=== PATIENT | female | born 1940 | race Caucasian/White ===

== ENCOUNTER 2020-07-29 10:10 | Outpatient (CLI) | payer OTHER, SELFPAY ==
--- NOTE | ~2020-07-29 | MM_ITS ---
EXAMINATION: MM screening [facility] BI w kirill HISTORY: Screening mammogram TECHNIQUE: Craniocaudal and mediolateral oblique 3-D tomosynthesis images were obtained and synthetic 2-D images were generated. CAD analysis was submitted and interpreted. COMPARISON: 12/13/2018, 06/21/2017, 06/17/2016 BREAST PARENCHYMAL COMPOSITION: There are scattered areas of fibroglandular density. FINDINGS: There is a stable left breast mass with adjacent biopsy change. There is no evidence of dbera picious mass, calcification, or architectural distortion to suggest malignancy in either breast. Ther e has been no suspicious interval change. IMPRESSION: 1. No mammographic evidence of malignancy. 2. Recommend routine screening mammography in one year. BI-RADS Category 2: Benign finding(s). Reviewed, dictated and finalized at location A. RVENTIONAL NURSE
== END 2020-07-29 10:11 | disposition home or self-care (01) ==
LOC: ANHIMG 10:14
PROVIDERS: PCP Family Medicine Adolescent Medicine; Visit Provider Physician Assistant
DX: Z12.31 Encounter for screening mammogram for malignant neoplasm of breast (principal)
CPT/HCPCS: 77063; 77067

== ENCOUNTER 2021-06-19 12:28 | Outpatient (CLI) | payer OTHER, SELFPAY ==
--- NOTE | ~2021-06-19 | US_ITS ---
EXAMINATION: US soft tissue head and neck DATE: 06/19/2021 13:05 INDICATION: Localized right neck swelling. TECHNIQUE: Multiple grayscale and Doppler ultrasound images of the neck were obtained. COMPARISON: None FINDINGS: In the posterior right neck, there is a 1.4 x 1.4 x 1.5 cm solid, hypoechoic, peripherally calcified mass. IMPRESSION: 1. 1.5 cm mass in posterior right neck, which may be benign or malignant. Neck CT with contrast is re commended. Reviewed, dictated and finalized at location A. IMPRESSION: 1. 1.5 cm mass in posterior right neck, which may be benign or malignant. Neck CT with contrast is recommended.
== END 2021-06-19 12:29 | disposition home or self-care (01) ==
PROVIDERS: PCP Family Medicine Adolescent Medicine; Visit Provider Otolaryngology
DX: R22.1 Localized swelling, mass and lump, neck (principal)
CPT/HCPCS: 76536

== ENCOUNTER → 2021-07-07 03:39 | Outpatient (CLI) | payer OTHER, SELFPAY ==
[2021-07-07 19:59] LABS: SARS-CoV-2 RNA PCR Negative
== END ==
PROVIDERS: PCP Family Medicine Adolescent Medicine; Visit Provider Otolaryngology
DX: Z01.812 Encounter for preprocedural laboratory examination (principal); Z20.822 Contact with and (suspected) exposure to COVID-19
CPT/HCPCS: C9803; U0003; U0005

== ENCOUNTER 2021-07-08 13:38 | Outpatient (CLI) | payer OTHER, SELFPAY ==
--- NOTE | 2021-07-08 13:50 | ECG_ITS ---
Measurements Intervals [place] Rate: 73 P: 18 MA: 166 QRS: -10 QRSD: 83 T: 2 QT: 398 QTc: 440 Interpretive Statements SINUS RHYTHM LOW QRS VOLTAGE IN PRECORDIAL LEADS BORDERLINE R WAVE PROGRESSION, ANTERIOR LEADS INFERIOR INFARCT, AGE INDETERMINATE ABNORMAL ECG Electronically Signed On 07-08-2021 15:44:48 CDT by James Trimble D.O.
[2021-07-08 15:10] LABS: Anion Gap 10 mmol/L (8-16); Blood Urea Nitrogen 17 mg/dL (7-17); Calcium 9.6 mg/dL (8.4-10.2); Carbon Dioxide 28 mmol/L (22-30); Chloride 102 mmol/L (98-107); Estimated Glomerular Filt Rate 53; Glucose 94 mg/dL (65-110); Potassium 4.1 mmol/L (3.4-5.0); Sodium 140 mmol/L (137-145)
== END 2021-07-08 13:39 | disposition home or self-care (01) ==
LOC: ANHSURGERY 13:42
PROVIDERS: Anesthesiology; PCP Family Medicine Adolescent Medicine; Visit Provider Otolaryngology
DX: I10 Essential (primary) hypertension (principal); Z01.818 Encounter for other preprocedural examination; R94.31 Abnormal electrocardiogram [ECG] [EKG]
CPT/HCPCS: 36415; 80048; 93005

== ENCOUNTER 2021-07-10 00:31 | Day surgery (SDC) | payer OTHER, SELFPAY ==
--- NOTE | 2021-07-07 06:17 | PM.HPGS ---
History of Present Illness History of Present Illness Consent: Risks, benefits, and alternatives have been discussed and questions answered. Patient agrees to proceed with procedure. Chief complaint: right posterior cervical neck mass Narrative: Jacquie Meraz is a 81 year old female with a right posterior cervical firm mass Review of Systems Review of Systems: All systems reviewed & are unremarkable except as noted in HPI and below PMFSH Family History Family History Father Lung cancer Hypertension Heart disease Mother Carcinoma of colon Sibling Asthma Hypertension Depression Other Alcoholism Diabetes mellitus Hypertension Depression Grandparent Carcinoma of colon Grandparent Breast cancer Stomach cancer Social History Social History Alcohol intake: never Substance use: never Substance use type: does not use Meds Home Medications and Allergies Home Medications Medication Instructions Recorded Confirmed Type aspirin 81 mg tablet,delayed 81 mg PO DAILY 03/03/21 03/03/21 History release glucosamine HCl 1,500 mg tablet 1,500 mg PO DAILY 03/03/21 03/03/21 History levothyroxine 150 mcg capsule 150 mcg PO DAILY 03/03/21 03/03/21 History lisinopril 20 1 tablet PO DAILY 03/03/21 03/03/21 History mg-hydrochlorothiazide 12.5 mg tablet simvastatin 40 mg tablet 40 mg PO DAILY 03/03/21 03/03/21 History fluticasone propionate 50 See Rx Instructions .ROUTE 05/14/21 Rx mcg/actuation nasal .COMPLEX #16 ml spray,suspension Allergies Allergy/AdvReac Type Severity Reaction Status Date / Time erythromycin base Allergy Severe RASH, Verified 06/25/21 08:31 SWELLING Penicillins Allergy Severe RASH, Verified 06/25/21 08:31 SWELLING, BLISTERS Sulfa (Sulfonamide Allergy Mild SORE Verified 06/25/21 08:31 Antibiotics) MUSCLES FRESH BLACK PEPPER Allergy Mild ITCHING Uncoded 06/05/21 08:54 AND TINGLING AROUND MOUTH Exam Narrative: chest clear heart without murmurs abdomen soft extremities negative right posterior for mass approximately 2.5 cm Assessment and Plan Additional Plan plan excision neck mass right posterior cervical
[2021-07-07 14:36] VITALS: BMI 34.4
--- NOTE | 2021-07-09 10:49 | WPDANESEPPF ---
Anes - Initial Pre Proc Eval Procedure: Operation Date: 07/10/21 10:15 Proposed Procedures p Excision Right Posterior Cervical Neck Mass - Ross Sanders MD Date/Time: 07/09/21 10:49 Surgeon: Ross Sanders MD Pre Op Diagnosis: right posterior cervical neck mass Patient Data Age: 81 Gender: F Height: 1.63 m Weight: 90.9 kg Allergies Allergy/AdvReac Type Severity Reaction Status Date / Time erythromycin base Allergy Severe RASH, Verified 07/10/21 08:23 SWELLING Penicillins Allergy Severe RASH, Verified 07/10/21 08:23 SWELLING, BLISTERS Sulfa (Sulfonamide Allergy Mild SORE Verified 07/10/21 08:23 Antibiotics) MUSCLES FRESH BLACK PEPPER Allergy Mild ITCHING Uncoded 07/10/21 08:23 AND TINGLING AROUND MOUTH Home Medications Medication Instructions Recorded Confirmed Type aspirin 81 mg tablet,delayed 81 mg PO DAILY 03/03/21 07/10/21 History release glucosamine HCl 1,500 mg tablet 1,500 mg PO DAILY 03/03/21 07/10/21 History levothyroxine 150 mcg capsule 150 mcg PO DAILY 03/03/21 07/10/21 History lisinopril 20 0.5 tablet PO DAILY 03/03/21 07/10/21 History mg-hydrochlorothiazide 12.5 mg tablet simvastatin 40 mg tablet 40 mg PO DAILY 03/03/21 07/10/21 History Hair,Nails and Skin Vitamin 1 tab-cap PO DAILY 07/07/21 07/10/21 History ipratropium bromide 1 mcg INTRANASAL DAILY 07/07/21 07/10/21 History omeprazole 20 mg PO DAILY 07/07/21 07/10/21 History meclizine 25 mg PO TID 07/10/21 07/10/21 History Patient hx anesthesia problems: none Family hx anesthesia problems: none Results Review: All pre-operative results and documents have been reviewed as part of the pre-operative evaluation. [facility] Past Medical History Medical History (Updated 07/09/21 @ 10:50 by Javier Quintana DO) Crohn disease GERD (gastroesophageal reflux disease) Hepatitis Hypertension Hypothyroidism Surgical History Surgical History (Updated 07/09/21 @ 10:50 by Javier Quintana DO) History of appendectomy History of tubal ligation Family History Family History Father Lung cancer Hypertension Heart disease Mother Carcinoma of colon Sibling Asthma Hypertension Depression Other Alcoholism Diabetes mellitus Hypertension Depression Grandparent Carcinoma of colon Grandparent Breast cancer Stomach cancer Social History Social History Smoking status: Light tobacco smoker Alcohol intake: never Substance use: never Substance use type: does not use Living arrangements: alone Spiritual care concerns: No Anes - Eval Final PreProcedure Day of Procedure 07/09/21 10:49 Patient weight: obese Heart: regular rate and rhythm Lungs: clear to auscultation and normal air movement Airway: Mallampati scale class II Neurological: alert and oriented Last oral intake: >/= 8 hours ASA classification: III Emergent: no Anesthetic plan: proceed Anesthesia type and monitoring: general ETT and standard monitoring Results Review: All pre-operative results and documents have been reviewed as part of the pre-operative evaluation. Informed Consent: The patient's anesthetic plan and its attendant risks and benefits were discussed with the patient/family/POA. Questions were solicited and answers provided to the satisfaction of the patient/family/POA.
[2021-07-10] VITALS (9 sets, daily range): BP systolic 104–143; BP diastolic 49–67; PULSE 65–83; RESP 12–20; TEMP 36.4–36.6; O2SAT 97–100
--- NOTE | 2021-07-10 06:07 | WPDHPUPDATE1 ---
History and Physical Update Update Date/Time: 07/10/21 06:07 History and Physical has been reviewed, including an updated exam of the patient. There are NO changes in the patient's condition. Risks, benefits, and alternatives have been discussed and questions answered. Patient agrees to proceed with procedure.
[2021-07-10] MEDS: LACTATED RINGERS 1,000 ML 30 ML IV CONT ×2 (08:51→11:05)
[2021-07-10] MEDS: LIDO 1%/EPINEPHRINE 1:100,000 50 ML VIAL INFILTRATE (10:13)
--- NOTE | 2021-07-10 10:25 | P.OP_ITS ---
Procedure Note - Detailed Date of Procedure 07/10/21 Pre-op Diagnosis right posterior cervical neck mass Post-op Diagnosis same Procedure Performed Excision posterior cervical mass Surgeon Ross Sanders MD Description of Procedure Patient was prepped and draped fashion anesthesia the area was injected xylocaine with adrenaline incision was made palpation revealed very hard consistent with bone marker of the 11th nerve was identified area more than likely represented fat on top bone to fat was removed hemostasis was obtained w ith bipolar electrocautery and closed in layers of chromic and glue
== END 2021-07-10 12:50 | disposition home or self-care (01) ==
PROVIDERS: PCP Family Medicine Adolescent Medicine; Visit Provider Otolaryngology
PROC: (CPT 11423; principal; 2021-07-10 10:15)
DX: L90.5 Scar conditions and fibrosis of skin (principal); I10 Essential (primary) hypertension; E03.9 Hypothyroidism, unspecified; K21.9 Gastro-esophageal reflux disease without esophagitis; K50.90 Crohn's disease, unspecified, without complications; F17.200 Nicotine dependence, unspecified, uncomplicated
CPT/HCPCS: 11423; 36415; 80048; 88304; 93005; A9270; C9803; J0330; J1100; J2405; J2704; J3010; J7120; U0003; U0005

== ENCOUNTER 2023-02-17 02:18 | Inpatient (IN) | payer OTHER, SELFPAY ==
[2023-02-17] VITALS (8 sets, daily range): BP systolic 121–143; BP diastolic 45–56; PULSE 58–80; RESP 13–20; TEMP 35.9–36.5; O2SAT 97–100; BMI 29.7
--- NOTE | ~2023-02-17 | CT_ITS ---
CT of the Abdomen and Pelvis: Indication: Abdominal pain Technique: 2.5 mm axial scans were obtained through the abdomen and pelvis following intravenous adm inistration of 100 cc of Omnipaque 350. Dose reduction technique was used on this scan by utilizing a utomated exposure control and iterative reconstruction technique. The dose-length product (DLP) was 7 13.89 mGy-cm. COMPARISON: 08/28/2012 Findings: Scans through the lung bases demonstrates stable 5 mm left lower lobe pulmonary nodule. The liver, spleen, pancreas, gallbladder, adrenals and kidneys are within normal limits. There are at herosclerotic calcifications of the aorta. No lymphadenopathy. Left-sided IVC noted with hemiazygos continuation. Questionable minimal wall thickening and adjacent stranding of the proximal duodenum/gastric antrum. No bowel obstruction. No abscess or free air. Images through the pelvis were performed. Urinary bladder unremarkable. There is an 8.8 x 7.6 cm pelv ic mass with large amount of macroscopic fat, as well as additional smaller soft tissue components an d focal consolidation, most compatible with early/mature teratoma. This probably arises from the righ t ovarian region. No other adnexal mass seen. No ascites. Impression: Questionable mild wall thickening at the proximal duodenum with minimal surrounding inflammatory benitez ge. Correlate for duodenitis/peptic ulcer disease, or possibly pancreatitis. 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 Reviewed, dictated and finalized at [facility]. Impression: Questionable mild wall thickening at the proximal duodenum with minimal surroun ding inflammatory change. Correlate for duodenitis/peptic ulcer disease, or pos sibly pancreatitis. 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
--- NOTE | ~2023-02-17 | US_ITS ---
EXAMINATION: US soft tissue LE RT DATE: 02/18/2023 11:10 INDICATION: Right lower limb bump. TECHNIQUE: Multiple grayscale and Doppler ultrasound images of the right lower limb were obtained. COMPARISON: None FINDINGS: In the patient's area of concern in right lower limb near the lateral right ankle, there is ill-defined hyperechoic subcutaneous fat, consistent with inflammation. IMPRESSION: 1. Ill-defined hyperechoic subcutaneous fat in right lower limb near the lateral right ankle, consist ent with inflammation. Reviewed, dictated and finalized at location A. IMPRESSION: 1. Ill-defined hyperechoic subcutaneous fat in right lower limb near the latera l right ankle, consistent with inflammation.
--- NOTE | ~2023-02-17 | XR_ITS ---
Portable chest x-ray Comparison: None Clinical History: Chest pain Findings: Lungs are clear, without focal consolidation or pleural effusion. Cardiomediastinal silho uette is unremarkable. Bones and soft tissues are unremarkable. Impression: Clear lungs. Reviewed, dictated and finalized at location [facility]. Impression: Clear lungs.
--- NOTE | ~2023-02-17 | US_ITS ---
Limited Abdominal Sonogram: Real-time sonographic imaging of the right upper quadrant was performed. Clinical History: Right upper quadrant pain Findings: The liver appears normal with no evidence of mass lesion or bile duct dilatation. Main por roxanna vein demonstrates normal direction of flow. The gallbladder is well distended, and contains a min imal amount of sludge. No gallbladder wall thickening. The common bile duct measures 4 mm. The visua lized pancreas, aorta, and IVC are unremarkable. Impression: Minimal gallbladder sludge. Reviewed, dictated and finalized at location [facility]. Impression: Minimal gallbladder sludge.
--- NOTE | 2023-02-17 02:22 | ECG_ITS ---
Measurements Intervals [place] Rate: 74 P: 42 SC: 172 QRS: 1 QRSD: 87 T: 18 QT: 392 QTc: 437 Interpretive Statements SINUS RHYTHM LOW QRS VOLTAGE IN PRECORDIAL LEADS [QRS DEFLECTION < 1.0 mV IN CHEST LEADS] ABNORMAL ECG COMPARED TO ECG 07/08/2021 14:03:45 NO SIGNIFICANT CHANGES Electronically Signed On 02-17-2023 9:37:53 CDT by Charli Roberson M.D.
[2023-02-17 02:32] LABS: Basophils Percent Auto 0.6 % (0.2-1.2); Eosinophils Absolute Auto 0.3 K/mm3 (0-0.3); Eosinophils Percent Auto 4.5 % (0-4.4); Hematocrit 33.5 % (37.0-47.0); Immature Granulocyte Absolute 0.01 K/mm3 (0.00-0.031); Immature Granulocyte Percent A 0.2 % (0-0.5); Lymphocytes Absolute Auto 2.49 K/mm3 (0.9-3.2); Lymphocytes Percent Auto 38.3 % (18.3-44.2); Mean Corpuscular HGB Conc 32.8 g/dl (32-36); Mean Corpuscular Hemoglobin 31.3 pg (26-34); Mean Corpuscular Volume 95.2 fl (80-100); Mean Platelet Volume 9.7 fl (7.4-10.4); Monocytes Absolute Auto 0.5 K/mm3 (0.1-0.6); Monocytes Percent Auto 7.1 % (2.6-8.5); Neutrophils Absolute Auto 3.2 K/mm3 (1.3-6.7); Neutrophils Percent Auto 49.3 % (45.5-73.1); Platelet Count Result 233 k/mm3 (150-375); Red Blood Count 3.52 M/mm3 (4.2-5.4); White Blood Count 6.5 K/mm3 (4.5-10.0)
--- NOTE | 2023-02-17 02:39 | ED.GENADULT ---
HPI - General Adult General Chief complaint: Chest Pain Stated complaint: CP Time Seen by Provider: 02/17/23 02:39 History of Present Illness HPI narrative: Triage note says chest pain. Actually abdominal pain. Patient states that at 2:00 a.m. this morning while she is sleeping she started have a stabbing/spasm pain in her right upper quadrant, is nonradiating 10 out 10 intensity. . She is no longer feeling pain. She has never had this before there are no exacerbating alleviating symptoms. The pain happened she felt clammy and nauseous. She denies fever chills chest pain difficulty breathing and vomiting. Her last bowel movement was 3 days ago. Patient has noticed that she is losing weight although she says that she is trying to eat more healthy. Denies other complaints. Related Data Home Medications Medication Instructions Recorded Confirmed aspirin 81 mg tablet,delayed 81 mg PO DAILY 03/03/21 01/21/23 release (Adult Low Dose Aspirin) glucosamine HCl 1,500 mg tablet 1,500 mg PO DAILY 03/03/21 01/21/23 Hair,Nails and Skin Vitamin 1 tab-cap PO DAILY 07/07/21 01/21/23 omeprazole 20 mg tablet,delayed 20 mg PO DAILY 07/07/21 01/21/23 release biotin 1 mg capsule 1 mg PO DAILY 06/24/22 01/21/23 Allergies Allergy/AdvReac Type Severity Reaction Status Date / Time erythromycin base Allergy Severe RASH, Verified 01/21/23 08:46 SWELLING Penicillins Allergy Severe RASH, Verified 01/21/23 08:46 SWELLING, BLISTERS Sulfa (Sulfonamide Allergy Mild SORE Verified 01/21/23 08:46 Antibiotics) MUSCLES FRESH BLACK PEPPER Allergy Mild ITCHING Uncoded 01/21/23 08:46 AND TINGLING AROUND MOUTH PMFSH Past Medical History Medical History GERD (gastroesophageal reflux disease) Hepatitis 1961 Hypothyroidism Sialadenitis Surgical History Surgical History History of appendectomy History of hysterectomy with oophorectomy History of tubal ligation 1976 Family History Family History Father Lung cancer Hypertension Heart disease Malignant neoplasm of prostate Mother Carcinoma of colon Sibling Asthma Hypertension Heart disease Other Alcoholism Diabetes mellitus Hypertension Depression Grandparent Carcinoma of colon Grandparent Breast cancer Stomach cancer Son Alcoholism Depression Diabetes mellitus Hypertension Social History Social History Smoking status: Former smoker Tobacco type: cigarettes Second hand tobacco smoke exposure: No Smoking end date: 09/13/75 Alcohol intake: never Substance use: never Substance use type: does not use Living arrangements: with family Occupation/Education: retired Gender identity (if verbalized by the patient): Female Sexual Orientation (if Verbalized by the Patient): Straight or Heterosexual Spiritual care concerns: No Agree to blood products: Yes Exam Narrative: APPEARANCE: No apparent distress. Head: atraumatic. EYES: EOMI, NOSE: Atraumatic NECK: Trachea midline RESPIRATORY: No increased rate of breathing clear to auscultation CARDIOVASCULAR: RRR, No peripheral edema ABDOMINAL: tenderness in the right upper quadrant without distention guarding or rebound. Bowel sounds present. MUSCULOSKELETAl: No obvious deformities NEURO: Alert. Moving 4/4 extremities SKIN:: Warm, dry. Normal color PSYCHIATRIC: Normal affect Course Vital Signs Vital signs: Vital Signs Pulse Rate 80 02/17/23 02:19 Respiratory Rate 20 02/17/23 02:19 Pulse Oximetry 99 02/17/23 02:19 Oxygen Delivery Room Air 02/17/23 02:19 Pulse Rate 66 02/17/23 04:53 Respiratory Rate 13 02/17/23 04:53 Blood Pressure 128/56 L 02/17/23 04:53 Pulse Oximetry 100
[2023-02-17 02:44] LABS: Alanine Aminotransferase 32 U/L (6-35); Albumin Level 3.7 g/dL (3.5-5.1); Alkaline Phosphatase 72 U/L (38-126); Anion Gap 4 mmol/L (8-16); Aspartate Amino Transferase 64 U/L (14-36); Bilirubin,Total 0.2 mg/dL (0.2-1.3); Blood Urea Nitrogen 20 mg/dL (7-17); Carbon Dioxide 30 mmol/L (22-30); Chloride 106 mmol/L (98-107); Estimated CRCL calculation 38 ml/min; Estimated Glomerular Filt Rate 53; Glucose 99 mg/dL (65-110); Lipase 1261 U/L (23-300); Partial Thromboplastin Time 28.1 SECONDS (22.3-36.8); Potassium 3.6 mmol/L (3.4-5.0); Prothrombin Time 13.2 Seconds (11.1-14.7); Sodium 140 mmol/L (137-145)
--- NOTE | 2023-02-17 03:05 | PC.NURSE ---
Nurse report given to Debbie SORENSEN
[2023-02-17 03:33] LABS: Troponin I < 0.012 ng/mL (0.000-0.034)
--- NOTE | 2023-02-17 05:21 | PM.IMHP ---
H&P: HPI History of Present Illness Date/Time: 02/17/23 05:21 Chief Complaint: Abdominal pain Narrative: This is an 82-year-old female with past medical history significant for degenerative joint disease, COPD, hypertension, dyslipidemia. Patient presents to the emergency room due to right upper quadrant pain walker up from her sleep denies any nausea, vomiting, diarrhea has had constipation, weight loss. Denies any fevers, rigors, chills. Preliminary workup was significant for CT of abdomen and pelvis was reported as: CT of the Abdomen and Pelvis: Indication: Abdominal pain Technique:? 2.5 mm axial scans were obtained through the abdomen and pelvis following intravenous administration of 100 cc of Omnipaque 350. Dose reduction technique was used on this scan by utilizing automated exposure control and iterative reconstruction technique. The dose-length product (DLP) was 713.89 mGy-cm. COMPARISON: 08/28/2012 Findings:? Scans through the lung bases demonstrates stable 5 mm left lower lobe pulmonary nodule. The liver, spleen, pancreas, gallbladder, adrenals and kidneys are within normal limits. There are atherosclerotic calcifications of the aorta.? No lymphadenopathy. Left-sided IVC noted with hemiazygos continuation. Questionable minimal wall thickening and adjacent stranding of the proximal duodenum/gastric antrum. No bowel obstruction. No abscess or free air. Images through the pelvis were performed. Urinary bladder unremarkable. There is an 8.8 x 7.6 cm pelvic mass with large amount of macroscopic fat, as well as additional smaller soft tissue components and focal consolidation, most compatible with early/mature teratoma. 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 No other adnexal mass seen. No ascites. Impression: Questionable mild wall thickening at the proximal duodenum with minimal surrounding inflammatory change. Correlate for duodenitis/peptic ulcer disease, or possibly pancreatitis. 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 Portable chest x-ray Comparison: None Clinical History: Chest pain Findings:? Lungs are clear, without focal consolidation or pleural effusion.? Cardiomediastinal silhouette is unremarkable. Bones and soft tissues are unremarkable. ? Impression: ? Clear lungs. Review of Systems Review of Systems: Right upper quadrant pain, weight loss. Constitutional: Constitutional: Denies chills, Denies fatigue, Denies fever(s), Denies malaise, Denies weakness and Reports weight loss Eyes: Eyes: Denies change in vision ENT: Denies dysphagia and Denies odynophagia Cardiovascular: Cardiovascular: Denies chest pain, Denies radiating jaw, neck or arm pain and Denies palpitations Respiratory: Respiratory: Denies chest congestion, Denies cough, Denies excessive phlegm production and Denies dyspnea Gastrointestinal: Gastrointestinal: Reports abdominal pain, Denies dyspepsia, Denies heartburn, Denies diarrhea, Denies nausea and Denies vomiting Genitourinary: Genitourinary: Denies dysuria Musculoskeletal: Musculoskeletal: Denies back pain, Denies myalgias and Denies arthralgias Integumentary/Breasts: Skin/Breast: Denies rash Neurologic: Denies focal weakness and Denies Sensory deficit (Neuro) [facility] Past Medical History Medical History (Updated 02/17/23 @ 15:46 by Julio Guerra MD) GERD (gastroesophageal reflux disease) Hepatitis 1961 Hypothyroidism Pelvic mass in female Sialadenitis Sludge in gallbladder Surgical History Surgical History History of appendectomy History of hysterectomy with oophorectomy History of tubal ligation 1976 Family History Family History Father Lung cancer Hypertension Heart disease Malignant neoplasm of prostate Mother Carcinoma of colon Sibling Asthma Hypertension Heart disease Ot
[2023-02-17 06:03] LABS: Troponin I < 0.012 ng/mL (0.000-0.034)
--- NOTE | 2023-02-17 06:13 | ADMGEN ---
At 0610 this patient, Jacquie Meraz, was admitted to 3 [facility] Surg Room 307-01. Patient/family oriented to hospital policies and general routines including ID bracelet, bed and alarms, visiting hours, pain management, procedures, bathroom and other care routines, personal items, smoking policy, room service/diet, and visiting hours. Information on how to activate the Rapid Response Team has been discussed. Patient/Family are encouraged to report perceived risks to care and to ask questions if they do not understand what they are told or what they should do.
[2023-02-17] MEDS: LACTATED RINGERS 1,000 ML 125 ML IV CONT ×2 (07:52→16:48)
[2023-02-17 08:40] LABS: Troponin I < 0.012 ng/mL (0.000-0.034)
[2023-02-17 10:15] LABS: Lipase 1430 U/L (23-300)
[2023-02-17] MEDS: IPRATROPIUM NASAL SPRAY 0.06% 15 ML BOTTLE 4 SPRAY NASAL ×2 (10:32→20:21)
[2023-02-17] MEDS: lisinopriL 20 MG TABLET PO (10:32)
[2023-02-17] MEDS: oxyBUTYnin CHLORIDE XL 5 MG TAB.ER.24 PO (10:32)
[2023-02-17] MEDS: hydroCHLOROthiazide 12.5 MG CAPSULE PO (10:33)
[2023-02-17] MEDS: SIMVASTATIN 20 MG TABLET 40 MG PO (10:33)
--- NOTE | 2023-02-17 13:04 | WPDPN ---
Progress Note: A&P Assessment and Plan (1) Acute pancreatitis: Code(s): K85.90 - Acute pancreatitis without necrosis or infection, unspecified Status: Acute Assessment and Plan: Place in observation Supportive care GI consult This is an 82-year-old female with past medical history significant for degenerative joint disease, COPD, hypertension, dyslipidemia.? Patient presents to the emergency room due to right upper quadrant pain walker up from her sleep denies any nausea, vomiting, diarrhea has had constipation, weight loss.? Denies any fevers, rigors, chills.? Preliminary workup was significant for CT of abdomen and pelvis preliminary report pancreatic cystic adenoma 02/17/2023 interval histroy: Patient presented with abdominal pain is found to acute pancreatitis and pancreatic cyst upon arrival patient lipase were elevated, patient is hydrated, on clear liquid and pain control, and states her pain is much better compared to when she arrived, patient has no history of alcohol abuse, and patient had no history of pancreatitis, patient be seen GI and further recommendation to follow. (2) Hypertensive chronic kidney disease with stage 1 through stage 4 chronic kidney disease, or unspecified chronic kidney disease: Code(s): I12.9 - Hypertensive chronic kidney disease with stage 1 through stage 4 chronic kidney disease, or unspecified chronic kidney disease Status: Acute (3) Chronic kidney disease, stage 3a: Code(s): N18.31 - Chronic kidney disease, stage 3a Status: Acute (4) GERD (gastroesophageal reflux disease): Code(s): K21.9 - Gastro-esophageal reflux disease without esophagitis Status: Acute (5) Right upper quadrant pain: Code(s): R10.11 - Right upper quadrant pain Status: Acute Subjective Date/time seen: 02/17/23 13:04 Interval history: Abdominal pain Narrative: This is an 82-year-old female with past medical history significant for degenerative joint disease, COPD, hypertension, dyslipidemia.? Patient presents to the emergency room due to right upper quadrant pain walker up from her sleep denies any nausea, vomiting, diarrhea has had constipation, weight loss.? Denies any fevers, rigors, chills.? Preliminary workup was significant for CT of abdomen and pelvis preliminary report pancreatic cystic adenoma 02/17/2023 interval histroy: Patient presented with abdominal pain is found to acute pancreatitis and pancreatic cyst upon arrival patient lipase were elevated, patient is hydrated, on clear liquid and pain control, and states her pain is much better compared to when she arrived, patient has no history of alcohol abuse, and patient had no history of pancreatitis, patient be seen GI and further recommendation to follow. Objective Data Vital Signs Vital Signs: Vital Signs - 24 hr 02/17/23 02:19 02/17/23 04:53 02/17/23 05:58 Temperature Pulse Rate 80 66 68 Respiratory Rate 20 13 15 Blood Pressure 128/56 L 122/52 L Pulse Oximetry 99 100 100 Oxygen Delivery Room Air 02/17/23 06:10 02/17/23 06:35 Temperature 97.7 F 97.7 F Pulse Rate 68 Respiratory Rate 14 14 Blood Pressure 143/45 H 143/45 H Pulse Oximetry 97 97 Oxygen Delivery Intake/Output Intake/Output: Intake & Output 02/14/23 02/15/23 02/16/23 02/17/23 23:59 23:59 23:59 23:59 Intake Total 360 Output Total 900 Balance -540 Meds/Results Medications: Active Medications Generic Name Dose Route Start Last Admin Trade Name Freq PRN Reason Stop Dose Admin Aspirin 81 mg 02/18/23 09:00 Aspirin 81 Mg Enteric Tablet PO DAILY ISAAC Hydrochlorothiazide 12.5 mg 02/17/23 09:40 02/17/23 10:33 Hydrochlorothiazide 12.5 Mg Capsule PO 12.5 mg QAM ISAAC Administration Lactated Ringer's 1,000 mls @ 125 mls/hr 02/17/23 05:25 02/17/23 07:52 Lr - Lactated Ringers Iv IV CONT 125 mls/hr .Q8H ISAAC Administration Ipratropium [place] 4 spray 02/17/23 09:
--- NOTE | 2023-02-17 13:32 | PCCCNOTE ---
On 02/17/23, the student, [Lexus Montano ], provided care and completed [facility] documentation on this patient. I have reviewed the student's documentation and agree with the findings.
--- NOTE | 2023-02-17 15:41 | WPDGICN ---
Assessment and Plan Assessment and plan (1) Right upper quadrant pain: Code(s): R10.11 - Right upper quadrant pain Status: Acute Assessment and Plan: severe on presentation and now almost gone pancreatitis, no alcohol noted sludge in GB, ask surgery to see (2) Acute pancreatitis: Code(s): K85.90 - Acute pancreatitis without necrosis or infection, unspecified Status: Acute Assessment and Plan: CL diet for now, feeling better (3) Chronic kidney disease, stage 3a: Code(s): N18.31 - Chronic kidney disease, stage 3a Status: Acute (4) Sludge in gallbladder: Code(s): K82.8 - Other specified diseases of gallbladder Status: Acute (5) Pelvic mass in female: Code(s): R19.00 - Intra-abdominal and pelvic swelling, mass and lump, unspecified site Status: Acute Assessment and Plan: further work up by primary, incidental finding GI Consult Note Consult date/time: 02/17/23 15:41 Reason for consult: pancreatitis HPI: Jacquie Meraz is a 82 year old female with past medical history significant for degenerative joint disease, COPD, hypertension, dyslipidemia.?She came to the emergency room due to new onset of severe right upper quadrant pain that woke her up from her sleep, sharp in nature, denies any nausea, vomiting. Denies previous episode, no alcohol use. She called EMS and brought to ER. 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 Lipase 1600, ast 60, normal bilirubin. She is doing ok now. Review of Systems Constitutional: Constitutional: Denies chills, Denies fatigue, Denies fever(s) and Reports weight loss Eyes: Eyes: Denies change in vision ENT: Denies dysphagia Cardiovascular: Cardiovascular: Denies chest pain and Denies palpitations Respiratory: Respiratory: Denies chest congestion and Denies excessive phlegm production Gastrointestinal: Gastrointestinal: Reports abdominal pain, Denies heartburn, Denies diarrhea and Denies nausea Genitourinary: Genitourinary: Denies dysuria Musculoskeletal: Musculoskeletal: Denies back pain Integumentary/Breasts: Skin/Breast: Denies rash Neurologic: Denies focal weakness and Denies Sensory deficit (Neuro) Psychiatric: Psychiatric: Denies anxiety PMFSH Past Medical History Medical History (Updated 02/17/23 @ 15:46 by Julio Guerra MD) GERD (gastroesophageal reflux disease) Hepatitis 1961 Hypothyroidism Pelvic mass in female Sialadenitis Sludge in gallbladder Surgical History Surgical History History of appendectomy History of hysterectomy with oophorectomy History of tubal ligation 1976 Family History Family History Father Lung cancer Hypertension Heart disease Malignant neoplasm of prostate Mother Carcinoma of colon Sibling Asthma Hypertension Heart disease Other Alcoholism Diabetes mellitus Hypertension Depression Grandparent Carcinoma of colon Grandparent Breast cancer Stomach cancer Son Alcoholism Depression Diabetes mellitus Hypertension Social History Social History Smoking packs per day: 1 Smoking cigarettes per day: 20.0 Smoking status: Former smoker Tobacco type: cigarettes Second hand tobacco smoke exposure: Yes Smoking end date: 09/13/75 Alcohol intake: never Substance use: never Substance use type: does not use Lack of Transportation: No Lack of Food: Never True Current Housing: I Have Housing Concerned About Future Housing: No Difficulty Paying Gas/Electric Bills: No Difficulty Paying for Meds: No Currently Unemployed: No Education: Decline to Answer Difficulty w/ Childcare or Family Care: No Living arrangements: with family O
--- NOTE | 2023-02-18 00:20 | WPDCN ---
Assessment and Plan Assessment and plan (1) Sludge in gallbladder: Code(s): K82.8 - Other specified diseases of gallbladder Status: Acute Assessment and Plan: Does not appear to have acute cholecystitis and only has some minimal sludge in the gallbladder. Will allow her acute pancreatitis to resolve and then further discuss with patient if she wants to proceed with lap bruce, poss open bruce during this admission. (2) Acute pancreatitis: Code(s): K85.90 - Acute pancreatitis without necrosis or infection, unspecified Status: Acute Assessment and Plan: Might be due to biliary sludge but not entirely convincing. Will follow lipase levels and clinical abd exam. Will discuss further with her possible lap bruce during this admit after her acute pancreatitis improves. HPI Data of Consult Date/Time: 02/18/23 00:20 Requesting Physician: Jimena Lemus MD Primary Care Provider: Boy Rawls MD Consult Narrative Reason for consult: Acute pancreatitis possible due to biliary sludge Narrative: Jacquie Meraz is a 82 year old female who was admitted to hospital from ER after she was awoken from sleep with severe epigastric and RUQ abd pain. No nausea or emesis. WBC normal and LFTs normal. Lipase on admit 1200 and up to 1400 today. She is tolerating clear liquids. Abd US showed minimal gallbladder sludge. CT abd/pelvis showed possible thickening of the duodenum vs acute pancreatitis. She has been seen by GI who does not feel endoscopy is warranted at this time. Review of Systems Review of Systems: The remainder of the review of systems to include constitutional, HEENT, cardiovascular, respiratory, GI, , integumentary, musculoskeletal, endocrine, immunologic, hematologic, psychiatric, and neurologic are all negative except for which is mentioned above in the HPI. [facility] Past Medical History Medical History GERD (gastroesophageal reflux disease) Hepatitis 1961 Hypothyroidism Pelvic mass in female Sialadenitis Sludge in gallbladder Surgical History Surgical History History of appendectomy History of hysterectomy with oophorectomy History of tubal ligation 1976 Family History Family History Father Lung cancer Hypertension Heart disease Malignant neoplasm of prostate Mother Carcinoma of colon Sibling Asthma Hypertension Heart disease Other Alcoholism Diabetes mellitus Hypertension Depression Grandparent Carcinoma of colon Grandparent Breast cancer Stomach cancer Son Alcoholism Depression Diabetes mellitus Hypertension Social History Social History Smoking packs per day: 1 Smoking cigarettes per day: 20.0 Smoking status: Former smoker Tobacco type: cigarettes Second hand tobacco smoke exposure: Yes Smoking end date: 09/13/75 Alcohol intake: never Substance use: never Substance use type: does not use Lack of Transportation: No Lack of Food: Never True Current Housing: I Have Housing Concerned About Future Housing: No Difficulty Paying Gas/Electric Bills: No Difficulty Paying for Meds: No Currently Unemployed: No Education: Decline to Answer Difficulty w/ Childcare or Family Care: No Living arrangements: with family Occupation/Education: retired Gender identity (if verbalized by the patient): Female Sexual Orientation (if Verbalized by the Patient): Straight or Heterosexual Spiritual care concerns: No Agree to blood products: Yes Meds Home Medications and Allergies Home Medications Medication Instructions Recorded Confirmed Type aspirin 81 mg tablet,delayed 81 mg PO DAILY 03/03/21 02/17/23 History release (Adult Low Dose Aspirin) glucosamine HCl 1,500 mg
[2023-02-18] MEDS: LACTATED RINGERS 1,000 ML 125 ML IV CONT ×3 (02:22→19:41)
[2023-02-18 05:48] LABS: Hematocrit 34.5 % (37.0-47.0); Hemoglobin 11.2 g/dL (12.0-15.0); Mean Corpuscular HGB Conc 32.5 g/dl (32-36); Mean Corpuscular Hemoglobin 31.4 pg (26-34); Mean Corpuscular Volume 96.6 fl (80-100); Mean Platelet Volume 9.6 fl (7.4-10.4); Platelet Count Result 232 k/mm3 (150-375); Red Blood Count 3.57 M/mm3 (4.2-5.4); Red Cell Distribution Width 12.2 % (11.5-14.5)
[2023-02-18 06:00] VITALS: BP 135/49; PULSE 68; RESP 16; TEMP 36.4; O2SAT 100
[2023-02-18] MEDS: LEVOTHYROXINE SODIUM 112 MCG TABLET PO (06:05)
[2023-02-18] MEDS: LEVOTHYROXINE SODIUM 25 MCG TABLET PO (06:05)
[2023-02-18 06:08] LABS: Alanine Aminotransferase 30 U/L (6-35); Albumin Level 3.6 g/dL (3.5-5.1); Alkaline Phosphatase 79 U/L (38-126); Anion Gap 3 mmol/L (8-16); Aspartate Amino Transferase 29 U/L (14-36); Bilirubin,Total 0.4 mg/dL (0.2-1.3); Blood Urea Nitrogen 11 mg/dL (7-17); Carbon Dioxide 33 mmol/L (22-30); Chloride 105 mmol/L (98-107); Estimated CRCL calculation 62 ml/min; Estimated Glomerular Filt Rate > 60; Glucose 92 mg/dL (65-110); Magnesium 1.9 mg/dL (1.6-2.3); Potassium 4.2 mmol/L (3.4-5.0); Sodium 141 mmol/L (137-145); Triglycerides 104 mg/dL (<150)
[2023-02-18] MEDS: hydroCHLOROthiazide 12.5 MG CAPSULE PO (08:36)
[2023-02-18] MEDS: PANTOPRAZOLE 40 MG TABLET PO (08:37)
[2023-02-18] MEDS: lisinopriL 20 MG TABLET PO (08:37)
[2023-02-18] MEDS: ASPIRIN 81 MG ENTERIC TABLET PO (08:38)
[2023-02-18] MEDS: SIMVASTATIN 20 MG TABLET 40 MG PO (08:38)
[2023-02-18] MEDS: oxyBUTYnin CHLORIDE XL 5 MG TAB.ER.24 PO (08:39)
[2023-02-18 09:11] LABS: Lipase 64 U/L (23-300)
--- NOTE | 2023-02-18 11:34 | PM.PNGS ---
Progress Note: A&P Assessment and Plan (1) Sludge in gallbladder: Code(s): K82.8 - Other specified diseases of gallbladder Status: Acute Assessment and Plan: She does not seem to have much symptoms in regards to her gallbladder. Abdominal ultrasound only showed minimal sludge but no thickening of the gallbladder wall. Discussed with her possible laparoscopic cholecystectomy if she continues to have any ongoing issues with the gallbladder but at this time she is leaning towards observation. (2) Acute pancreatitis: Code(s): K85.90 - Acute pancreatitis without necrosis or infection, unspecified Status: Acute Assessment and Plan: Acute pancreatitis has resolved. We will go ahead and advance her to full liquids and then low-fat diet as tolerated. Probably can go home in the next 24hours if she stable. Can follow-up with me in the office in about 2 weeks to discuss elective lap bruce Subjective Subjective Date/Time Seen: 02/18/23 11:34 Interval history: Patient is doing fairly well today. Still has minimal epigastric abdominal pain. She is tolerating clear liquids without any nausea or increasing pain. White blood cell count is normal. Lipase is normalized today as well. Review of Systems Review of Systems: The remainder of the review of systems to include constitutional, HEENT, cardiovascular, respiratory, GI, , integumentary, musculoskeletal, endocrine, immunologic, hematologic, psychiatric, and neurologic are all negative except for which is mentioned above in the HPI. Exam Const: General: comfortable and no acute distress Resp: Effort & Inspection: normal respiratory effort Auscultation: clear to auscultation bilaterally Cardio: Rate: regular rate Rhythm: regular rhythm GI: Other: Abdomen is soft and nondistended. Minimal tenderness to deep palpation epigastric region of the abdomen. Neuro: Speech: normal speech Sensory Exam: normal sensation Psych: Mental Status: mental status grossly normal Affect: normal affect Objective Data Vital Signs Vital Signs: Vital Signs - 24 hr 02/17/23 13:00 02/17/23 14:00 02/17/23 22:00 Temperature 36.1 C L 35.9 C L Pulse Rate 67 58 L 68 Respiratory Rate 18 16 Blood Pressure 121/53 L 121/45 L Pulse Oximetry 97 99 98 Oxygen Delivery Room Air 02/18/23 06:00 Temperature 36.4 C L Pulse Rate 68 Respiratory Rate 16 Blood Pressure 135/49 L Pulse Oximetry 100 Oxygen Delivery Intake/Output Intake/Output: Intake & Output 02/15/23 02/16/23 02/17/23 02/18/23 23:59 23:59 23:59 23:59 Intake Total 1600 2268 Output Total 1400 1600 Balance 200 668 Meds/Results Medications: Active Medications Generic Name Dose Route Start Last Admin Trade Name Santana PRN Reason Stop Dose Admin Aspirin 81 mg 02/18/23 09:00 02/18/23 08:38 Aspirin 81 Mg Enteric Tablet PO 81 mg DAILY ISAAC Administration Hydrochlorothiazide 12.5 mg 02/17/23 09:40 02/18/23 08:36 Hydrochlorothiazide 12.5 Mg Capsule PO 12.5 mg QAM ISAAC Administration Lactated Ringer's 1,000 mls @ 125 mls/hr 02/17/23 05:25 02/18/23 10:27 Lr - Lactated Ringers Iv IV CONT 125 mls/hr .Q8H ISAAC Administration Ipratropium [place] 4 spray 02/17/23 09:35 02/18/23 08:39 Ipratropium Nasal [place] 0.06% 15 Ml Bottle NASAL Not Given Q12HR ISAAC Levothyroxine Sodium 25 mcg 02/18/23 06:30 02/18/23 06:05 Levothyroxine Sodium 25 Mcg Tablet PO 25 mcg DAILY@0630 ISAAC Administration Levothyroxine Sodium 112 mcg 02/18/23 06:30 02/18/23 06:05 Levothyroxine Sodium 112 Mcg Tablet PO 112 mcg DAILY@0630 ISAAC Administration Lisinopril 20 mg 02/17/23 09:40 02/18/23 08:37 Lisinopril 20 Mg Tablet PO 20 mg QAM ISAAC Administration Oxybutynin Chloride 5 mg 02/17/23 09:00 02/18/23 08:39 Oxybutynin Chloride Xl 5 Mg Tab.Er.24 PO 5 mg DAILY ISAAC Administration Pantoprazole Sodium 40 mg
[2023-02-18] MEDS: ACETAMINOPHEN 325 MG TABLET 650 MG PO (12:02)
[2023-02-18 14:00] VITALS: BP 125/61; PULSE 69; RESP 14; TEMP 36.8; O2SAT 99
--- NOTE | 2023-02-18 15:49 | WPDPN ---
Progress Note: A&P Assessment and Plan (1) Acute pancreatitis: Code(s): K85.90 - Acute pancreatitis without necrosis or infection, unspecified Status: Acute Assessment and Plan: Place in observation Supportive care GI consult 02/18/2023 interval histroy: Patient presented with abdominal pain is found to acute pancreatitis and pancreatic cyst upon arrival patient lipase were elevated 1261 and today have trended down to 64, CT scan of abdomen concerning for gallbladder sludge seen by surgery service recommended to monitor if symptoms worsen and her lipase attending down may consider gallbladder surgery, patient is hydrated, on clear liquid and pain control, and states her pain is much better compared to when she arrived, patient has no history of alcohol abuse, and patient had no history of pancreatitis, patient be seen GI and surgery service, further recommendation to follow. (2) Right upper quadrant pain: Code(s): R10.11 - Right upper quadrant pain Status: Acute Assessment and Plan: RUQ US in am (3) Hypertensive chronic kidney disease with stage 1 through stage 4 chronic kidney disease, or unspecified chronic kidney disease: Code(s): I12.9 - Hypertensive chronic kidney disease with stage 1 through stage 4 chronic kidney disease, or unspecified chronic kidney disease Status: Acute Assessment and Plan: Resume home meds new (4) Chronic kidney disease, stage 3a: Code(s): N18.31 - Chronic kidney disease, stage 3a Status: Acute Assessment and Plan: Continue to monitor Bun/Cr Daily BMP (5) GERD (gastroesophageal reflux disease): Code(s): K21.9 - Gastro-esophageal reflux disease without esophagitis Status: Acute Assessment and Plan: PPI Subjective Date/time seen: 02/18/23 15:49 Interval history: Abdominal pain Narrative: This is an 82-year-old female with past medical history significant for degenerative joint disease, COPD, hypertension, dyslipidemia.? Patient presents to the emergency room due to right upper quadrant pain walker up from her sleep denies any nausea, vomiting, diarrhea has had constipation, weight loss.? Denies any fevers, rigors, chills.? Preliminary workup was significant for CT of abdomen and pelvis preliminary report pancreatic cystic adenoma 02/18/2023 interval histroy: Patient presented with abdominal pain is found to acute pancreatitis and pancreatic cyst upon arrival patient lipase were elevated 1261 and today have trended down to 64, CT scan of abdomen concerning for gallbladder sludge seen by surgery service recommended to monitor if symptoms worsen and her lipase attending down may consider gallbladder surgery, patient is hydrated, on clear liquid and pain control, and states her pain is much better compared to when she arrived, patient has no history of alcohol abuse, and patient had no history of pancreatitis, patient be seen GI and surgery service, further recommendation to follow. Review of Systems Review of Systems: Right upper quadrant pain, weight loss. Objective Data Vital Signs Vital Signs: Vital Signs - 24 hr 02/17/23 22:00 02/18/23 06:00 02/18/23 14:00 Temperature 96.6 F L 97.5 F L 98.3 F Pulse Rate 68 68 69 Respiratory Rate 16 16 14 Blood Pressure 121/45 L 135/49 L 125/61 Pulse Oximetry 98 100 99 Intake/Output Intake/Output: Intake & Output 02/15/23 02/16/23 02/17/23 02/18/23 23:59 23:59 23:59 23:59 Intake Total 1600 2504 Output Total 1400 2200 Balance 200 304 Meds/Results Medications: Active Medications Generic Name Dose Route Start Last Admin Trade Name Freq PRN Reason Stop Dose Admin Acetaminophen 650 mg 02/18/23 11:34 02/18/23 12:02 Acetaminophen 325 Mg Tablet PO 650 mg Q4H PRN Administration Headache Aspirin 81 mg 02/18/23 09:00 02/18/23 08:38 Aspirin 81 Mg Enteric Tablet PO 81 mg DAILY ISAAC Administration Hydrochlorothiazi
--- NOTE | 2023-02-18 17:19 | WPDGIPROGNO ---
Progress Note: A&P Assessment and Plan (1) Acute pancreatitis: Code(s): K85.90 - Acute pancreatitis without necrosis or infection, unspecified Status: Acute Assessment and Plan: better advance to low fat diet (2) Right upper quadrant pain: Code(s): R10.11 - Right upper quadrant pain Status: Acute Assessment and Plan: improved she will follow-up with surgery, noted mild sludge in gb without acute inflammation or distension (3) Sludge in gallbladder: Code(s): K82.8 - Other specified diseases of gallbladder Status: Acute (4) Pelvic mass in female: Code(s): R19.00 - Intra-abdominal and pelvic swelling, mass and lump, unspecified site Status: Acute Assessment and Plan: by primary Subjective Date/time seen: 02/18/23 17:19 Interval history: she is comfortable and feeling better Review of Systems Review of Systems: All systems reviewed & are unremarkable except as noted in HPI and below Exam Const: General: comfortable and no acute distress HENMT: Face/Nose/Sinus: Normal nares present Eyes: Sclera: sclerae normal Neck: Neck: supple Resp: Effort & Inspection: normal respiratory effort Auscultation: clear to auscultation bilaterally Cardio: Rate: regular rate Rhythm: regular rhythm GI: GI Palp: Yes Soft to palpation and No Guarding due to palpation present (GI) Other: Abdomen is soft and nondistended. Minimal tenderness to deep palpation epigastric region of the abdomen. Skin: General skin exam: normal color Neuro: Speech: normal speech Sensory Exam: normal sensation Extrem: General: normal to inspection Psych: Mental Status: mental status grossly normal Affect: normal affect Objective Data Vital Signs Vital Signs: Vital Signs - 24 hr 02/17/23 22:00 02/18/23 06:00 02/18/23 14:00 Temperature 96.6 F L 97.5 F L 98.3 F Pulse Rate 68 68 69 Respiratory Rate 16 16 14 Blood Pressure 121/45 L 135/49 L 125/61 Pulse Oximetry 98 100 99 Intake/Output Intake/Output: Intake & Output 02/15/23 02/16/23 02/17/23 02/18/23 23:59 23:59 23:59 23:59 Intake Total 1600 2504 Output Total 1400 2200 Balance 200 304 Meds/Results Medications: Active Medications Generic Name Dose Route Start Last Admin Trade Name Freq PRN Reason Stop Dose Admin Acetaminophen 650 mg 02/18/23 11:34 02/18/23 12:02 Acetaminophen 325 Mg Tablet PO 650 mg Q4H PRN Administration Headache Aspirin 81 mg 02/18/23 09:00 02/18/23 08:38 Aspirin 81 Mg Enteric Tablet PO 81 mg DAILY ISAAC Administration Hydrochlorothiazide 12.5 mg 02/17/23 09:40 02/18/23 08:36 Hydrochlorothiazide 12.5 Mg Capsule PO 12.5 mg QAM ISAAC Administration Lactated Ringer's 1,000 mls @ 125 mls/hr 02/17/23 05:25 02/18/23 10:27 Lr - Lactated Ringers Iv IV CONT 125 mls/hr .Q8H ISAAC Administration Ipratropium [place] 4 spray 02/17/23 09:35 02/18/23 08:39 Ipratropium Nasal [place] 0.06% 15 Ml Bottle NASAL Not Given Q12HR ISAAC Levothyroxine Sodium 25 mcg 02/18/23 06:30 02/18/23 06:05 Levothyroxine Sodium 25 Mcg Tablet PO 25 mcg DAILY@0630 ISAAC Administration Levothyroxine Sodium 112 mcg 02/18/23 06:30 02/18/23 06:05 Levothyroxine Sodium 112 Mcg Tablet PO 112 mcg DAILY@0630 ISAAC Administration Lisinopril 20 mg 02/17/23 09:40 02/18/23 08:37 Lisinopril 20 Mg Tablet PO 20 mg QAM ISAAC Administration Oxybutynin Chloride 5 mg 02/17/23 09:00 02/18/23 08:39 Oxybutynin Chloride Xl 5 Mg Tab.Er.24 PO 5 mg DAILY ISAAC Administration Pantoprazole Sodium 40 mg 02/18/23 09:00 02/18/23 08:37 Pantoprazole 40 Mg Tablet PO 40 mg QAM ISAAC Administration Simvastatin 40 mg 02/17/23 09:00 02/18/23 08:38 Simvastatin 20 Mg Tablet PO 40 mg DAILY ISAAC Administration Triamcinolone Acetonide 1 applic 02/17/23 09:35 02/18/23 08:34 Triamcinolone Acet 0.1% Cream 15 Gm Tube TOPICAL
[2023-02-18 20:54] VITALS: BP 127/58; PULSE 56; RESP 16; TEMP 36.1; O2SAT 99
[2023-02-19] MEDS: LACTATED RINGERS 1,000 ML 125 ML IV CONT (04:19)
[2023-02-19 06:00] VITALS: BP 147/56; PULSE 70; RESP 16; TEMP 35.9; O2SAT 99
[2023-02-19 06:08] LABS: Hematocrit 35.7 % (37.0-47.0); Hemoglobin 11.6 g/dL (12.0-15.0); Mean Corpuscular HGB Conc 32.5 g/dl (32-36); Mean Corpuscular Hemoglobin 31.3 pg (26-34); Mean Corpuscular Volume 96.2 fl (80-100); Mean Platelet Volume 9.5 fl (7.4-10.4); Platelet Count Result 245 k/mm3 (150-375); Red Blood Count 3.71 M/mm3 (4.2-5.4); Red Cell Distribution Width 12.1 % (11.5-14.5); White Blood Count 5.9 K/mm3 (4.5-10.0)
[2023-02-19] MEDS: LEVOTHYROXINE SODIUM 25 MCG TABLET PO (06:12)
[2023-02-19] MEDS: LEVOTHYROXINE SODIUM 112 MCG TABLET PO (06:12)
[2023-02-19 06:21] LABS: Alanine Aminotransferase 24 U/L (6-35); Albumin Level 3.6 g/dL (3.5-5.1); Alkaline Phosphatase 68 U/L (38-126); Anion Gap 1 mmol/L (8-16); Aspartate Amino Transferase 24 U/L (14-36); Bilirubin,Total 0.4 mg/dL (0.2-1.3); Blood Urea Nitrogen 10 mg/dL (7-17); Carbon Dioxide 36 mmol/L (22-30); Chloride 105 mmol/L (98-107); Estimated CRCL calculation 48 ml/min; Estimated Glomerular Filt Rate > 60; Glucose 95 mg/dL (65-110); Lipase 67 U/L (23-300); Magnesium 1.8 mg/dL (1.6-2.3); Potassium 3.9 mmol/L (3.4-5.0); Sodium 142 mmol/L (137-145)
[2023-02-19] MEDS: SIMVASTATIN 20 MG TABLET 40 MG PO (08:32)
[2023-02-19] MEDS: IPRATROPIUM NASAL SPRAY 0.06% 15 ML BOTTLE 4 SPRAY NASAL (08:32)
[2023-02-19] MEDS: lisinopriL 20 MG TABLET PO (08:32)
[2023-02-19] MEDS: PANTOPRAZOLE 40 MG TABLET PO (08:32)
[2023-02-19] MEDS: hydroCHLOROthiazide 12.5 MG CAPSULE PO (08:32)
[2023-02-19] MEDS: ASPIRIN 81 MG ENTERIC TABLET PO (08:32)
[2023-02-19] MEDS: oxyBUTYnin CHLORIDE XL 5 MG TAB.ER.24 PO (08:32)
[2023-02-19] MEDS: TRIAMCINOLONE ACET 0.1% CREAM 15 GM TUBE 1 APPLIC TOPICAL (08:33)
[2023-02-19 08:36] VITALS: BP 130/55; PULSE 65; RESP 14; O2SAT 100
--- NOTE | 2023-02-19 10:47 | PM.PNGS ---
Progress Note: A&P Assessment and Plan (1) Sludge in gallbladder: Code(s): K82.8 - Other specified diseases of gallbladder Status: Acute Assessment and Plan: Patient has acute pancreatitis could have been due to gallbladder sludge. Presently she is asymptomatic from her gallbladder. Will have her follow up the office in 2 weeks to further discuss possible elective laparoscopic cholecystectomy. (2) Acute pancreatitis: Code(s): K85.90 - Acute pancreatitis without necrosis or infection, unspecified Status: Acute Assessment and Plan: Acute pancreatitis has resolved. Be discharged from the hospital at the discretion of hospitalist service. Follow up in the office in about 2 weeks. Subjective Subjective Date/Time Seen: 02/19/23 10:47 Interval history: Patient continues to feel good. Tolerated low-fat diet today without difficulty. No nausea or increased abdominal pain with eating. Liver enzymes are still normal and lipase is normal. Clinically her acute pancreatitis has resolved. Review of Systems Review of Systems: The remainder of the review of systems to include constitutional, HEENT, cardiovascular, respiratory, GI, , integumentary, musculoskeletal, endocrine, immunologic, hematologic, psychiatric, and neurologic are all negative except for which is mentioned above in the HPI. Exam Const: General: comfortable and no acute distress Neck: Neck: supple Resp: Effort & Inspection: normal respiratory effort Auscultation: clear to auscultation bilaterally Cardio: Rate: regular rate Rhythm: regular rhythm GI: Other: Abdomen is soft and nondistended. Very minimal tenderness to palpation epigastric region. Exam is essentially benign. Neuro: Speech: normal speech Motor exam (neuro): 5/5 motor strength present throughout Sensory Exam: normal sensation Psych: Mental Status: mental status grossly normal Affect: normal affect Objective Data Vital Signs Vital Signs: Vital Signs - 24 hr 02/18/23 14:00 02/18/23 20:54 02/19/23 06:00 Temperature 36.8 C 36.1 C L 35.9 C L Pulse Rate 69 56 L 70 Respiratory Rate 14 16 16 Blood Pressure 125/61 127/58 L 147/56 H Pulse Oximetry 99 99 99 02/19/23 08:36 Temperature Pulse Rate 65 Respiratory Rate 14 Blood Pressure 130/55 L Pulse Oximetry 100 Intake/Output Intake/Output: Intake & Output 02/16/23 02/17/23 02/18/23 02/19/23 23:59 23:59 23:59 23:59 Intake Total 1600 4244 1828 Output Total 1400 2800 750 Balance 200 1444 1078 Meds/Results Medications: Active Medications Generic Name Dose Route Start Last Admin Trade Name Santana PRN Reason Stop Dose Admin Acetaminophen 650 mg 02/18/23 11:34 02/18/23 12:02 Acetaminophen 325 Mg Tablet PO 650 mg Q4H PRN Administration Headache Aspirin 81 mg 02/18/23 09:00 02/19/23 08:32 Aspirin 81 Mg Enteric Tablet PO 81 mg DAILY ISAAC Administration Hydrochlorothiazide 12.5 mg 02/17/23 09:40 02/19/23 08:32 Hydrochlorothiazide 12.5 Mg Capsule PO 12.5 mg QAM ISAAC Administration Lactated Ringer's 1,000 mls @ 125 mls/hr 02/17/23 05:25 02/19/23 04:19 Lr - Lactated Ringers Iv IV CONT 125 mls/hr .Q8H ISAAC Administration Ipratropium [place] 4 spray 02/17/23 09:35 02/19/23 08:32 Ipratropium Nasal [place] 0.06% 15 Ml Bottle NASAL 4 spray Q12HR ISAAC Administration Levothyroxine Sodium 25 mcg 02/18/23 06:30 02/19/23 06:12 Levothyroxine Sodium 25 Mcg Tablet PO 25 mcg DAILY@0630 ISAAC Administration Levothyroxine Sodium 112 mcg 02/18/23 06:30 02/19/23 06:12 Levothyroxine Sodium 112 Mcg Tablet PO 112 mcg DAILY@0630 ISAAC Administration Lisinopril 20 mg 02/17/23 09:40 02/19/23 08:32 Lisinopril 20 Mg Tablet PO 20 mg QAM ISAAC Administration Oxybutynin Chloride 5 mg 02/17/23 09:00 02/19/23 08:32 Oxybutynin Chloride Xl 5 Mg Tab.Er.24 PO 5 mg DAILY ISAAC Administration Pantoprazole Sodium
--- NOTE | 2023-02-19 11:55 | PM.DS ---
DS: Admitting Diagnosis Discharge Date 02/19/2023 Admitting Diagnosis Abdominal pain DS: Discharge Diagnosis Discharge Diagnosis (1) Acute pancreatitis: Code(s): K85.90 - Acute pancreatitis without necrosis or infection, unspecified Status: Acute Assessment and Plan: Place in observation Supportive care GI consult 02/18/2023 interval histroy: Patient presented with abdominal pain is found to acute pancreatitis and pancreatic cyst upon arrival patient lipase were elevated 1261 and today have trended down to 64, CT scan of abdomen concerning for gallbladder sludge seen by surgery service recommended to monitor if symptoms worsen and her lipase attending down may consider gallbladder surgery, patient is hydrated, on clear liquid and pain control, and states her pain is much better compared to when she arrived, patient has no history of alcohol abuse, and patient had no history of pancreatitis, patient be seen GI and surgery service, further recommendation to follow. (2) Right upper quadrant pain: Code(s): R10.11 - Right upper quadrant pain Status: Acute Assessment and Plan: RUQ US in am (3) Hypertensive chronic kidney disease with stage 1 through stage 4 chronic kidney disease, or unspecified chronic kidney disease: Code(s): I12.9 - Hypertensive chronic kidney disease with stage 1 through stage 4 chronic kidney disease, or unspecified chronic kidney disease Status: Acute Assessment and Plan: Resume home meds new (4) Chronic kidney disease, stage 3a: Code(s): N18.31 - Chronic kidney disease, stage 3a Status: Acute Assessment and Plan: Continue to monitor Bun/Cr Daily BMP (5) GERD (gastroesophageal reflux disease): Code(s): K21.9 - Gastro-esophageal reflux disease without esophagitis Status: Acute Assessment and Plan: PPI DS: Summary Hospital Course Reason for hospitalization: Abdominal pain Narrative: This is an 82-year-old female with past medical history significant for degenerative joint disease, COPD, hypertension, dyslipidemia.? Patient presents to the emergency room due to right upper quadrant pain walker up from her sleep denies any nausea, vomiting, diarrhea has had constipation, weight loss.? Denies any fevers, rigors, chills.? Preliminary workup was significant for CT of abdomen and pelvis was reported as: Hospital Course: Patient presented with abdominal pain is found to acute pancreatitis and pancreatic cyst upon arrival patient lipase were elevated 1261 and today have trended down to 64, CT scan of abdomen concerning for gallbladder sludge seen by surgery service recommended to monitor if symptoms worsen and her lipase attending down may consider gallbladder surgery, patient is hydrated, on clear liquid and pain control, and states her pain is much better compared to when she arrived, patient has no history of alcohol abuse, and patient had no history of pancreatitis, patient be seen GI and surgery service,? further recommendation to follow. Patient was seen by surgery service suspect acute pancreatitis 2/2 gallbladder sludge, patient clinical symptoms have improved and able to tolerate her diet and does not need any surgical intervention, patient to follow up with her surgeon in 2 weeks. Time Spent with Patient Time attestation: Total time spent providing and/or coordinating discharge services: Exam Narrative: Patient is comfortable, NAD HEENT: eyes are clear and none icteric LUNGS:CTA HEART: RR S1S2 ABD: BS+, Soft and nontender Lower extremities: no edema SKIN: nonjaundiced Neuro: grossly intact. DS: Data Data Completed and Pending Labs on day of discharge: Labs from last 24 hours 02/19/23 05:56 WBC 5.9 RBC 3.71 L Hgb 11.6 L Hct 35.7 L MCV 96.2 MCH 31.3 MCHC 32.5 RDW 12.1 Plt Count 245 MPV 9.5 Sodium 142 Potassium 3.9 Chloride 105 Carbon Dioxide 36 H Anion Gap 1 L
[2023-02-19 13:42] VITALS: BP 149/59; PULSE 68; RESP 20; TEMP 36.3; O2SAT 100
--- NOTE | 2023-02-19 14:38 | WPDGIPROGNO ---
Progress Note: A&P Assessment and Plan (1) Acute pancreatitis: Code(s): K85.90 - Acute pancreatitis without necrosis or infection, unspecified Status: Acute Assessment and Plan: resolved, tolerating diet and no pain normalization of liver enzymes she can go home and follow-up with surgery (had sludge gb) (2) Right upper quadrant pain: Code(s): R10.11 - Right upper quadrant pain Status: Acute Assessment and Plan: resolved (3) Sludge in gallbladder: Code(s): K82.8 - Other specified diseases of gallbladder Status: Acute (4) Pelvic mass in female: Code(s): R19.00 - Intra-abdominal and pelvic swelling, mass and lump, unspecified site Status: Acute Assessment and Plan: follow-up with tax intern Subjective Date/time seen: 02/19/23 14:38 Interval history: tolerating diet, no nausea, doing better Review of Systems Review of Systems: All systems reviewed & are unremarkable except as noted in HPI and below Exam Const: General: comfortable and no acute distress HENMT: Face/Nose/Sinus: Normal nares present Eyes: Sclera: sclerae normal Neck: Neck: supple Resp: Auscultation: clear to auscultation bilaterally Cardio: Rate: regular rate Rhythm: regular rhythm GI: Inspection: non-distended GI Palp: Yes Soft to palpation and No Tenderness to palpation present (GI) Auscultation: normal bowel sounds Skin: General skin exam: normal color Neuro: Speech: normal speech Motor exam (neuro): 5/5 motor strength present throughout Extrem: General: normal to inspection Psych: Mental Status: mental status grossly normal Objective Data Vital Signs Vital Signs: Vital Signs - 24 hr 02/18/23 20:54 02/19/23 06:00 02/19/23 08:36 Temperature 97 F L 96.6 F L Pulse Rate 56 L 70 65 Respiratory Rate 16 16 14 Blood Pressure 127/58 L 147/56 H 130/55 L Pulse Oximetry 99 99 100 Oxygen Delivery 02/19/23 08:33 02/19/23 13:42 Temperature 97.4 F L Pulse Rate 68 Respiratory Rate 20 Blood Pressure 149/59 H Pulse Oximetry 100 Oxygen Delivery Room Air Intake/Output Intake/Output: Intake & Output 02/16/23 02/17/23 02/18/23 02/19/23 23:59 23:59 23:59 23:59 Intake Total 1600 4244 2308 Output Total 1400 2800 950 Balance 200 1444 1358 Meds/Results Medications: Active Medications Generic Name Dose Route Start Last Admin Trade Name Santana PRN Reason Stop Dose Admin Acetaminophen 650 mg 02/18/23 11:34 02/18/23 12:02 Acetaminophen 325 Mg Tablet PO 650 mg Q4H PRN Administration Headache Aspirin 81 mg 02/18/23 09:00 02/19/23 08:32 Aspirin 81 Mg Enteric Tablet PO 81 mg DAILY ISAAC Administration Hydrochlorothiazide 12.5 mg 02/17/23 09:40 02/19/23 08:32 Hydrochlorothiazide 12.5 Mg Capsule PO 12.5 mg QAM ISAAC Administration Lactated Ringer's 1,000 mls @ 125 mls/hr 02/17/23 05:25 02/19/23 04:19 Lr - Lactated Ringers Iv IV CONT 125 mls/hr .Q8H ISAAC Administration Ipratropium [place] 4 spray 02/17/23 09:35 02/19/23 08:32 Ipratropium Nasal [place] 0.06% 15 Ml Bottle NASAL 4 spray Q12HR ISAAC Administration Levothyroxine Sodium 25 mcg 02/18/23 06:30 02/19/23 06:12 Levothyroxine Sodium 25 Mcg Tablet PO 25 mcg DAILY@0630 ISAAC Administration Levothyroxine Sodium 112 mcg 02/18/23 06:30 02/19/23 06:12 Levothyroxine Sodium 112 Mcg Tablet PO 112 mcg DAILY@0630 ISAAC Administration Lisinopril 20 mg 02/17/23 09:40 02/19/23 08:32 Lisinopril 20 Mg Tablet PO 20 mg QAM ISAAC Administration Oxybutynin Chloride 5 mg 02/17/23 09:00 02/19/23 08:32 Oxybutynin Chloride Xl 5 Mg Tab.Er.24 PO 5 mg DAILY ISAAC Administration Pantoprazole Sodium 40 mg 02/18/23 09:00 02/19/23 08:32 Pantoprazole 40 Mg Tablet PO 40 mg QAM ISAAC Administration Simvastatin 40 mg 02/17/23 09:00 02/19/23 08:32 Simvastatin 20 Mg Tablet PO 40 mg DAILY ISAAC Administration Triamc
== END 2023-02-19 13:30 | disposition home or self-care (01) | DRG 440 ==
LOC: ANHED 05:21 → ANH3MEDSUR 05:41
PROVIDERS: Admitting Provider Internal Medicine; Emergency Provider Emergency Medicine; PCP Family Medicine Adolescent Medicine; Visit Provider Family Medicine
DX: K85.90 Acute pancreatitis without necrosis or infection, unspecified (principal); K82.8 Other specified diseases of gallbladder; I12.9 Hypertensive chronic kidney disease with stage 1 through stage 4 chronic kidney disease, or unspecified chronic kidney disease; N18.31 Chronic kidney disease, stage 3a; E78.5 Hyperlipidemia, unspecified; E03.9 Hypothyroidism, unspecified; J44.9 Chronic obstructive pulmonary disease, unspecified; K21.9 Gastro-esophageal reflux disease without esophagitis; R19.00 Intra-abdominal and pelvic swelling, mass and lump, unspecified site; Z90.49 Acquired absence of other specified parts of digestive tract; Z90.710 Acquired absence of both cervix and uterus; Z87.891 Personal history of nicotine dependence; Z79.82 Long term (current) use of aspirin
CPT/HCPCS: 36415; 71045; 74177; 76705; 76882; 80053; 83690; 83735; 84478; 84484; 85025; 85027; 85610; 85730; 93005; 99285; A9270; J7120; Q9967

== ENCOUNTER 2023-04-28 08:23 | Outpatient (CLI) | payer OTHER, SELFPAY ==
--- NOTE | ~2023-04-28 | DEXA_ITS ---
Bone Density Report Name: SHYLA CORONADO Age: 82 Sex: Female Ethnicity: White Date of : 1940 Indication: postmenopausal; screening for osteoporosis; height loss; inflammatory bowel disease; hysterectomy; Referring Provider: SUSAN KELLY Study: Bone densitometry was performed. Exam Date: April 28, 2023 Accession number: [id number] Bone Density: Region BMD T-score Z-score Classification AP Spine(L1-L4) 1.453 3.7 6.4 Normal Femoral Neck (Left) 0.878 0.3 2.6 Normal Total Hip (Left) 1.024 0.7 2.8 Normal Femoral Neck (Right) 0.856 0.1 2.4 Normal Total Hip (Right) 0.970 0.2 2.3 Normal Total Hip Mean 0.997 0.5 2.6 Normal World Health Organization criteria for BMD impression classify patients as: Normal (T-score at or above -1.0), Osteopenia (T-score between -1.0 and -2.5), or Osteoporosis (T-score at or below -2.5). 10-year Fracture Risk: FRAX not reported because: All T-scores for Spine Total, Hip Total, Femoral Neck at or above -1.0 Clinical Information Provided by Patient: Has used the following medications: Vitamin D Has the following medical conditions: Inflammatory bowel diseases, Hysterectomy Patient maximum height was 64.5 Menopause Age: 51 No regular weight bearing exercise Drinks caffeinated beverages Onset of menses at age 13 Number of children 4 Impression: The patient has normal bone mass. Discussion: LOW RISK OF FRACTURE; BONE DENSITY IS WELL ABOVE THE MINIMUM DESIRABLE LEVEL AND ABOVE AVERAGE FOR AGE AND SEX AT ALL SKELETAL SITES TESTED. This person's bone density is above expected limits for age and sex. This is rarely clinically significant, but should be pursued if there are significant musculoskeletal complaints. The patient should follow a healthful lifestyle (good nutrition with adequate calcium and vitamin D, and appropriate weight-bearing exercise). Follow-Up: Consider repeating this study in 5 years or sooner if there is some new clinical indication. Reported by: PAULIE on 04/28/2023 8:59:00 AM. Reviewed, dictated and finalized at location A. [facility]
--- NOTE | ~2023-04-28 | MM_ITS ---
EXAMINATION: MM screening juan BI w kirill HISTORY: Screening TECHNIQUE: Craniocaudal and mediolateral oblique 3-D tomosynthesis images were obtained and synthetic 2-D images were generated. CAD analysis was submitted and interpreted. COMPARISON: Comparison to multiple prior studies sequentially, with oldest reviewed study dated 05/07. BREAST PARENCHYMAL COMPOSITION: Breast composed of scattered areas of fibroglandular density FINDINGS: There are developing asymmetries in the periareolar location of the left breast. The right breast is stable without evidence for malignancy. IMPRESSION: 1. Developing asymmetries of the left breast in the periareolar location. 2. Additional mammographic views and possible breast ultrasound are recommended. BI-RADS Category 0: Incomplete: Needs additional imaging evaluation. Reviewed, dictated and finalized at location A. IMPRESSION: 1. Developing asymmetries of the left breast in the periareolar location. 2. Additional mammographic views and possible breast ultrasound are recommended . BI-RADS Category 0: Incomplete: Needs additional imaging evaluation.
== END 2023-04-28 08:24 | disposition home or self-care (01) ==
PROVIDERS: PCP Family Medicine Adolescent Medicine; Visit Provider Nurse Practitioner Family
DX: Z12.31 Encounter for screening mammogram for malignant neoplasm of breast (principal); Z13.820 Encounter for screening for osteoporosis; Z78.0 Asymptomatic menopausal state; R92.8 Other abnormal and inconclusive findings on diagnostic imaging of breast
CPT/HCPCS: 77063; 77067; 77080

== ENCOUNTER 2023-05-25 12:46 | Outpatient (CLI) | payer OTHER, SELFPAY ==
--- NOTE | ~2023-05-25 | MMUS_ITS ---
EXAMINATION: MM diagnostic juan LT w kirill, US breast LT limited HISTORY: Developing asymmetries of left breast in periareolar area were reported on 04/28/2023 screeni ng mammogram examination TECHNIQUE: Additional 3-D tomosynthesis images of were performed and synthetic 2-D images were genera omar. CAD analysis was submitted and interpreted. High resolution subareolar, upper outer quadrant and lower-outer quadrant left breast ultrasound was performed. COMPARISON: 04/28/2023, 07/29/2020, 12/13/2018 screening mammogram examinations FINDINGS: MAMMOGRAPHIC FINDINGS: No suspicious mass or architectural distortion is evident. There is a biopsy marker in the upper outer left breast. ULTRASOUND: 6:00 1 cm from nipple: There is a 6 mm simple cyst. Subareolar area: Mild shadowing without discrete mass lesion is detected. 1:00 2 cm from nipple: On transverse imaging there is some shadowing but no reproducible mass is evid ent on transverse and particularly longitudinal imaging in this area. 6 month follow-up diagnostic le ft mammogram and left breast ultrasound examination are recommended. IMPRESSION: 1. Probable benign sonographic finding left breast 1:00 2 cm from nipple 2. 6 month diagnostic left mammogram and targeted subareolar and 1:00 left breast ultrasound follow-u p are recommended BI-RADS category 3, probably benign findings. Reviewed, dictated and finalized at location A. IMPRESSION: 1. Probable benign sonographic finding left breast 1:00 2 cm from nipple 2. 6 month diagnostic left mammogram and targeted subareolar and 1:[address] ultrasound follow-up are recommended BI-RADS category 3, probably benign findings.
== END 2023-05-25 12:47 | disposition home or self-care (01) ==
PROVIDERS: PCP Family Medicine Adolescent Medicine; Visit Provider Nurse Practitioner Family
DX: R92.8 Other abnormal and inconclusive findings on diagnostic imaging of breast (principal)
CPT/HCPCS: 76642; 77061; 77065; G0279

== ENCOUNTER 2023-05-27 09:56 | Outpatient (CLI) | payer OTHER, SELFPAY ==
[2023-05-27 10:48] LABS: Alanine Aminotransferase 14 U/L (6-35); Albumin Level 4.1 g/dL (3.5-5.1); Alkaline Phosphatase 63 U/L (38-126); Amylase 91 U/L (30-110); Aspartate Amino Transferase 23 U/L (14-36); Bilirubin,Total 0.4 mg/dL (0.2-1.3); Lipase 109 U/L (23-300)
[2023-05-27 10:49] LABS: Anion Gap 7 mmol/L (8-16); Blood Urea Nitrogen 17 mg/dL (7-17); Calcium 9.4 mg/dL (8.4-10.2); Carbon Dioxide 29 mmol/L (22-30); Chloride 102 mmol/L (98-107); Estimated Glomerular Filt Rate > 60; Glucose 85 mg/dL (65-110); Potassium 4.4 mmol/L (3.4-5.0); Sodium 138 mmol/L (137-145)
== END 2023-05-27 09:57 | disposition home or self-care (01) ==
LOC: ANHSURGERY 10:06
PROVIDERS: Anesthesiology; Surgery; PCP Family Medicine Adolescent Medicine; Visit Provider Obstetrics & Gynecology
DX: N83.209 Unspecified ovarian cyst, unspecified side (principal); I10 Essential (primary) hypertension; K81.1 Chronic cholecystitis; Z01.818 Encounter for other preprocedural examination
CPT/HCPCS: 36415; 80048; 80076; 82150; 83690; 86850; 86900; 86901

== ENCOUNTER 2023-06-02 01:13 | Day surgery (SDC) | payer OTHER, SELFPAY ==
--- NOTE | 2023-05-24 13:28 | PC.NURSE ---
Report to the Outpatient Waiting Room, entrance under the green pavilion located off [facility], at time _1000 on date _06/02/23 . Planned Procedure Time: __1200 . Time changes happen often and if your time is changed the preop area will call you the afternoon before. - You and your visitor will be asked to self-screen and do not enter if you have any COVID symptoms. - A mask is optional within the hospital at this time. Patients may have clear liquids (water, carbonated beverages, clear teas, apple juice) until 3 hours prior to surgery with a maximum of 20 ounces. - No food from midnight until time of surgery - Infants may have breast milk until 4 hours before surgery, infant formula 6 hours prior to surgery. - Children will be allowed to drink immediately following surgery. If applicable, please bring a bottle or sippy cup to assist with drinking. Juice, water, soda, and popsicles are readily available. For infants on formula, please bring formula the day of surgery. Pacifiers are allowed. Take the following medications with a SIP of water the morning of surgery: __LEVOTHYROXINE DO NOT STOP ANY OF YOUR OTHER PRESCRIPTION MEDICATIONS PRIOR TO SURGERY ?EXCEPT THE FOLLOWING Medications to discontinue per physician NONE HIBICLENS SHOWER MORNING OF SURGERY Please no make-up, nail yakut, hairspray, perfume, deodorant, or body powder the day of surgery. No jewelry (including any body piercings) or valuables the day of surgery, leave them at home. Please take a shower or bath the night before, or the morning of, surgery with an antibacterial soap. Wear comfortable, loose fitting clothing. Children are encouraged to wear pajamas. - Jewelry must be removed prior to entering the operating room. Rings and piercings that are not removed may be cut off. - The hospital will not accept responsibility for valuables. - Please leave all valuables, including medications, at home the day of surgery. If you are going home after surgery, a licensed minibus driver must drive you home. - NO public transportation without another adult if you receive anesthesia. - We recommend that an adult stay with you for 24 hours following discharge. - We also recommend that you do not drive, make important decision, drink alcoholic beverages, or take any drugs that were not prescribed by your health care provider for at least 24 hours after your discharge time. For Pediatric surgeries, we recommend two adults accompany the child home. Follow any additional instructions given to you from your surgeon. If you or anyone in your household have experienced Covid symptoms in the past week, please notify your surgeon or the nurse liaison at the phone number below for possible testing. Telephone instructions given to ___PATIENT and asked if any additional questions and then verbalized understanding. Patient advised to call surgeon office or pre surgery nurse liaison [phone] if any additional questions.
[2023-05-24 13:41] VITALS: BMI 24.7
[2023-06-02] VITALS (9 sets, daily range): BP systolic 112–131; BP diastolic 40–56; PULSE 72–89; RESP 12–20; TEMP 36.3–36.6; O2SAT 98–100
[2023-06-02] MEDS: ACETAMINOPHEN 500 MG TABLET 1000 MG PO (10:46)
[2023-06-02] MEDS: KETOROLAC 15 MG/ML VIAL (*BKC) IV PUSH (10:48)
[2023-06-02] MEDS: LACTATED RINGERS 1,000 ML 30 ML IV CONT ×2 (10:50→14:21)
--- NOTE | 2023-06-02 11:04 | WPDANESEPPF ---
Anes - Initial Pre Proc Eval Procedure: Operation Date: 06/02/23 12:00 Proposed Procedures p Laparoscopic Bilateral Salpingo Oophorectomy - Surinder Mendoza MD s Laparoscopic Cholecystectomy, Possible Open - Deepak Roman MD Date/Time: 06/02/23 11:04 Surgeon: Surinder Mendoza MD Pre Op Diagnosis: Pelvic Pain, Ovarian Cyst, Chr Cholecystitis Patient Data Age: 82 Gender: F Height: 1.6 m Weight: 64.9 kg Last Vital Signs Temp 36.6 C 06/02/23 10:33 Pulse 85 06/02/23 10:33 Resp 20 06/02/23 10:33 BP 112/43 L 06/02/23 10:33 Pulse Ox 98 06/02/23 10:33 O2 Del Method Room Air 06/02/23 10:33 Allergies Allergy/AdvReac Type Severity Reaction Status Date / Time erythromycin base Allergy Severe RASH, Verified 06/02/23 10:14 SWELLING Penicillins Allergy Severe RASH, Verified 06/02/23 10:14 SWELLING, BLISTERS Sulfa (Sulfonamide Allergy Mild SORE Verified 06/02/23 10:14 Antibiotics) MUSCLES FRESH BLACK PEPPER Allergy Mild ITCHING Uncoded 06/02/23 10:14 AND TINGLING AROUND MOUTH Home Medications Medication Instructions Recorded Confirmed Type omeprazole 20 mg tablet,delayed 20 mg PO DAILY 07/07/21 05/24/23 History release simvastatin 40 mg tablet 40 mg PO DAILY #90 tabs 03/30/22 05/24/23 Rx lisinopril 20 See Rx Instructions .Route 04/22/22 05/24/23 Rx mg-hydrochlorothiazide 12.5 mg .COMPLEX #45 tabs tablet ipratropium bromide 42 mcg (0.06 See Rx Instructions .Route 05/20/22 05/24/23 Rx %) nasal spray .COMPLEX #15 mL levothyroxine 137 mcg tablet 137 mcg PO DAILY #90 tabs 04/12/23 05/24/23 Rx Patient hx anesthesia problems: none Family hx anesthesia problems: none Results Review: All pre-operative results and documents have been reviewed as part of the pre-operative evaluation. [facility] Past Medical History Medical History GERD (gastroesophageal reflux disease) Hepatitis 196 Hypothyroidism Pelvic mass in female Sialadenitis Sludge in gallbladder Surgical History Surgical History History of appendectomy History of hysterectomy with oophorectomy History of tubal ligation 1976 Family History Family History Father Lung cancer Hypertension Heart disease Malignant neoplasm of prostate Mother Carcinoma of colon Sibling Asthma Hypertension Heart disease Other Alcoholism Diabetes mellitus Hypertension Depression Grandparent Carcinoma of colon Grandparent Breast cancer Stomach cancer Son Alcoholism Depression Diabetes mellitus Hypertension Social History Social History Smoking packs per day: 1 Smoking cigarettes per day: 20.0 Years smoked: 10 Smoking pack-years: 10.00 Smoking status: Former smoker Tobacco type: cigarettes Second hand tobacco smoke exposure: Yes Smoking end date: 09/13/70 Alcohol intake: never Substance use: never Substance use type: does not use Lack of Transportation: No Lack of Food: Never True Current Housing: I Have Housing Concerned About Future Housing: No Difficulty Paying Gas/Electric Bills: No Difficulty Paying for Meds: No Currently Unemployed: No Education: Decline to Answer Difficulty w/ Childcare or Family Care: No Living arrangements: with family Occupation/Education: retired Gender identity (if verbalized by the patient): Female Sexual Orientation (if Verbalized by the Patient): Straight or Heterosexual Spiritual care concerns: No Agree to blood products: Yes Anes - Eval Final PreProcedure Day of Procedure 06/02/23 11:04 Patient weight: normal Heart: regular rate and rhythm Lungs: clear to auscultation Airway: Mallampati scale class II Neurological: alert and oriented Last oral intake
--- NOTE | 2023-06-02 11:22 | PM.IMHP ---
H&P: HPI History of Present Illness Date/Time: 06/02/23 11:22 Chief Complaint: RUQ pain, biliary colic Narrative: Ms. Meraz returns to the office for recheck after recent hospitalization for acute pancreatitis and RUQ abdominal pain.? During her work-up, she was found to have minimal sludge in her gallbladder, but she did not appear to have acute cholecystitis.? She was treated conservatively and upon discharge was instructed to follow-up in our office for recheck and to discuss possibly scheduling outpatient laparoscopic cholecystectomy. She continues to experience persistent RUQ abdominal and right back pain.? She has been maintaining a low fat, bland diet but states that doesn't seem to be helping much.? Dairy causes her symptoms to worsen. Review of Systems Review of Systems: The remainder of the review of systems to include constitutional, HEENT, cardiovascular, respiratory, GI, , integumentary, musculoskeletal, endocrine, immunologic, hematologic, psychiatric, and neurologic are all negative except for which is mentioned above in the HPI. [facility] Past Medical History Medical History GERD (gastroesophageal reflux disease) Hepatitis 1961 Hypothyroidism Pelvic mass in female Sialadenitis Sludge in gallbladder Surgical History Surgical History History of appendectomy History of hysterectomy with oophorectomy History of tubal ligation 1976 Family History Family History Father Lung cancer Hypertension Heart disease Malignant neoplasm of prostate Mother Carcinoma of colon Sibling Asthma Hypertension Heart disease Other Alcoholism Diabetes mellitus Hypertension Depression Grandparent Carcinoma of colon Grandparent Breast cancer Stomach cancer Son Alcoholism Depression Diabetes mellitus Hypertension Social History Social History Smoking packs per day: 1 Smoking cigarettes per day: 20.0 Years smoked: 10 Smoking pack-years: 10.00 Smoking status: Former smoker Tobacco type: cigarettes Second hand tobacco smoke exposure: Yes Smoking end date: 09/13/70 Alcohol intake: never Substance use: never Substance use type: does not use Lack of Transportation: No Lack of Food: Never True Current Housing: I Have Housing Concerned About Future Housing: No Difficulty Paying Gas/Electric Bills: No Difficulty Paying for Meds: No Currently Unemployed: No Education: Decline to Answer Difficulty w/ Childcare or Family Care: No Living arrangements: with family Occupation/Education: retired Gender identity (if verbalized by the patient): Female Sexual Orientation (if Verbalized by the Patient): Straight or Heterosexual Spiritual care concerns: No Agree to blood products: Yes Meds Home Medications and Allergies Home Medications Medication Instructions Recorded Confirmed Type omeprazole 20 mg tablet,delayed 20 mg PO DAILY 07/07/21 05/24/23 History release simvastatin 40 mg tablet 40 mg PO DAILY #90 tabs 03/30/22 05/24/23 Rx lisinopril 20 See Rx Instructions .Route 04/22/22 05/24/23 Rx mg-hydrochlorothiazide 12.5 mg .COMPLEX #45 tabs tablet ipratropium bromide 42 mcg (0.06 See Rx Instructions .Route 05/20/22 05/24/23 Rx %) nasal spray .COMPLEX #15 mL levothyroxine 137 mcg tablet 137 mcg PO DAILY #90 tabs 04/12/23 05/24/23 Rx Allergies Allergy/AdvReac Type Severity Reaction Status Date / Time erythromycin base Allergy Severe RASH, Verified 06/02/23 10:14 SWELLING Penicillins Allergy Severe RASH, Verified 06/02/23 10:14 SWELLING, BLISTERS Sulfa (Sulfonamide Allergy Mild SORE Verified 06/02/23 10:14 Antibiotics) MUSCLES FRESH BLACK PEPPER Allergy Mild ITCHING Uncoded 06/02/23 10:14 AND TINGL
--- NOTE | 2023-06-02 11:25 | WPDHPUPDATE1 ---
History and Physical Update Update Date/Time: 06/02/23 11:25 History and Physical has been reviewed, including an updated exam of the patient. There are NO changes in the patient's condition. Risks, benefits, and alternatives have been discussed and questions answered. Patient agrees to proceed with procedure.
--- NOTE | 2023-06-02 11:52 | PM.IMHP ---
H&P: HPI History of Present Illness Date/Time: 06/02/23 11:52 Chief Complaint: Ovarian mass Narrative: 82 y/o here for laparoscopic cholecystectomy with Dr. Roman. 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 We plan to perform BSO after her cholecystectomy. Review of Systems Review of Systems: All systems reviewed & are unremarkable except as noted in HPI and below PMFSH Past Medical History Medical History (Updated 06/02/23 @ 11:55 by Surinder Mendoza MD) GERD (gastroesophageal reflux disease) Hepatitis 1961 Hypothyroidism Pelvic mass in female Sialadenitis Sludge in gallbladder Surgical History Surgical History History of appendectomy History of total vaginal hysterectomy History of tubal ligation 1976 Family History Family History Father Lung cancer Hypertension Heart disease Malignant neoplasm of prostate Mother Carcinoma of colon Sibling Asthma Hypertension Heart disease Other Alcoholism Diabetes mellitus Hypertension Depression Grandparent Carcinoma of colon Grandparent Breast cancer Stomach cancer Son Alcoholism Depression Diabetes mellitus Hypertension Social History Social History Smoking packs per day: 1 Smoking cigarettes per day: 20.0 Years smoked: 10 Smoking pack-years: 10.00 Smoking status: Former smoker Tobacco type: cigarettes Second hand tobacco smoke exposure: Yes Smoking end date: 09/13/70 Alcohol intake: never Substance use: never Substance use type: does not use Lack of Transportation: No Lack of Food: Never True Current Housing: I Have Housing Concerned About Future Housing: No Difficulty Paying Gas/Electric Bills: No Difficulty Paying for Meds: No Currently Unemployed: No Education: Decline to Answer Difficulty w/ Childcare or Family Care: No Living arrangements: with family Occupation/Education: retired Gender identity (if verbalized by the patient): Female Sexual Orientation (if Verbalized by the Patient): Straight or Heterosexual Spiritual care concerns: No Agree to blood products: Yes Meds Home Medications and Allergies Home Medications Medication Instructions Recorded Confirmed Type omeprazole 20 mg tablet,delayed 20 mg PO DAILY 07/07/21 05/24/23 History release simvastatin 40 mg tablet 40 mg PO DAILY #90 tabs 07/18/22 09/11/23 Rx lisinopril 20 See Rx Instructions .Route 04/22/22 05/24/23 Rx mg-hydrochlorothiazide 12.5 mg .COMPLEX #45 tabs tablet ipratropium bromide 42 mcg (0.06 See Rx Instructions .Route 05/20/22 05/24/23 Rx %) nasal spray .COMPLEX #15 mL levothyroxine 137 mcg tablet 137 mcg PO DAILY #90 tabs 04/12/23 05/24/23 Rx Allergies Allergy/AdvReac Type Severity Reaction Status Date / Time erythromycin base Allergy Severe RASH, Verified 06/02/23 10:14 SWELLING Penicillins Allergy Severe RASH, Verified 06/02/23 10:14 SWELLING, BLISTERS Sulfa (Sulfonamide Allergy Mild SORE Verified 06/02/23 10:14 Antibiotics) MUSCLES FRESH BLACK PEPPER Allergy Mild ITCHING Uncoded 06/02/23 10:14 AND TINGLING AROUND MOUTH Vital Signs Vital Signs - 24 hr 06/02/23 10:33 Temperature 36.6 C Pulse Rate 85 Respiratory Rate 20 Blood Pressure 112/43 L Pulse Oximetry 98 Oxygen Delivery Room Air Exam Const: Orientation/consciousness: patient oriented x3 Other: Well-developed, well-nourished female in no acute distress. Neck: Thyroid: thyroid normal Lymphatic: no lymphadenopathy noted (in neck, axilla or inguinal nodes) Resp: Effort & Inspection: normal respiratory effort Auscultation: clear to auscultation bilaterally Cardio: Rate: regular rate Rhythm: r
--- NOTE | 2023-06-02 11:56 | WPDHPUPDATE1 ---
History and Physical Update Update Date/Time: 06/02/23 11:56 History and Physical has been reviewed, including an updated exam of the patient. There are NO changes in the patient's condition. Risks, benefits, and alternatives have been discussed and questions answered. Patient agrees to proceed with procedure.
[2023-06-02] MEDS: ceFAZolin 2 GM/D5W 50 ML 2 GM/50 ML BAG IVPB (12:15)
[2023-06-02] MEDS: LIDO 1%/EPINEPHRINE 1:100,000 20 ML VIAL 15 ML INFILTRATE (12:53)
[2023-06-02] MEDS: BUPivacaine HCL 0.5% 10 ML AMP 15 ML INFILTRATE (12:54)
--- NOTE | 2023-06-02 13:35 | W.PM.PROC2 ---
Procedure Note - Detailed Date of Procedure 06/02/23 Pre-op Diagnosis Pelvic Pain, Ovarian Cyst, Chr Cholecystitis Post-op Diagnosis Same Procedure Performed Laparoscopic cholecystectomy. Surgeon Deepak Roman MD B[employer] Picker FILOMENA Becerra Anesthesia General Indications patient is a 82-year-old white female who has been evaluated for intermittent the rather chronic epigastric and right upper quadrant abdominal pain. It usually is made worse with eating. Abdominal ultrasound showed no gallstones with gallbladder sludge. Mild thickening the gallbladder wall was seen. She likely has chronic cholecystitis secondary to gallbladder sludge presents now for laparoscopic cholecystectomy. She also has a right ovarian mass which is thought to be a teratoma and Dr. Mendoza from the [facility] will be performing a bilateral salpingo-oophorectomy after the laparoscopic cholecystectomy is done. Findings Gallbladder was distended with some very mild thickening of the gallbladder wall. No adhesions of the omentum duodenum or stomach were seen to the gallbladder itself. No acute inflammation was noted. Description of Procedure After informed consent was obtained patient brought to the operating room where she was placed supine position and general endotracheal anesthesia was administered. A Martinez catheter was placed decompress the bladder. The abdomen was then prepped and draped usual sterile fashion. A time-out was then performed correctly identifying the patient as well as procedure to be performed. She was given perioperative IV antibiotics. I then entered the abdomen the left upper quadrant utilizing a 5mm Optiview port. Once inside the abdomen insufflated to adequate pneumoperitoneum of 15mm of mercury with CO2. Looking in the area the umbilicus or no adhesions so that placed a 5mm periumbilical trocar port. The laparoscopic then switched to the periumbilical trocar port in looking into the upper portion of the abdomen placed epigastric 10mm trocar port 2 right lateral subcostal 5mm trocar ports all under direct visualization. The goal was visualized it was distended with a mildly thickened gallbladder wall but no acute inflammatory changes. No adhesions of the omentum duodenum or stomach were seen to the gallbladder. I held the gallbladder with laparoscopic grasper at the dome and elevated the the gallbladder with the right hip the which was the right shoulder. A 2nd grasper is used to hold the gallbladder at the infundibulum. I then stripped down the visceral peritoneum on the infundibular gallbladder identified the cystic duct. The cystic duct was then dissected out circumferentially. The cystic artery was identified as well and dissected out circumferentially. The posterior wall the gallbladder at the infundibulum dissected free ff the liver until the critical view was obtained. At this point then placed 2 clips proximally cystic duct and 2 clips distally high on infundibular gallbladder. The cystic duct was divided with Endo Pati. In a similar fashion is the cystic artery clipped and divided as well. The gallbladder was resected off the liver utilizing electrocautery without spilling any bile. Once the gallbladder was freed from the liver is placed into an Endo-Catch bag and brought out through the epigastric port site. The gallbladder and contents were sent to pathology for examination. I then irrigated the right upper quadrant the abdomen the gallbladder fossa with copious amounts of sterile saline solution. Hemostasis was excellent. No evidence of bile leak was seen. I then aspirated the fluid from the right upper quadrant the abdomen from the pelvis. I then turned the procedure over to Dr. Mendoza who then took control the patient to perform his procedure. The patient was left in the operating room under general endotracheal anesthesia in stable condition after the laparoscopic cholecystectomy. The patient tolerated the gallbla
--- NOTE | 2023-06-02 14:00 | P.OP_ITS ---
Procedure Note - Detailed Date of Procedure 06/02/23 Pre-op Diagnosis Right ovarian dermoid Post-op Diagnosis Same Procedure Performed Laparoscopic bilateral salpingo-oophorectomy Surgeon Surinder Mendoza MD Anesthesia General Findings 8x8x9 cm right ovarian cystic mass. Left ovary small and unremarkable. Bila teral tubal remnants unremarkable. Uterus surgically absent. Description of Procedure I arrived to the room after cholecystectomy had been completed. She was under general anesthesia in supine position with a anderson catheter, with five laparoscopic incisions / ports already in place in the upper abdomen. With the laparoscope in the 5 mm umbilical port, two additional 5 mm ports were advanced in the right and left lower quadrants using bladeless trocars under direct laparoscopic visualization. A blunt probe was advanced, and a survey of the pelvis yielded the findings noted above. The ureters were visualized bilaterally. The Ligasure device was used to ligate the infundibulopelvic ligaments bilaterally. The left tubal remnant and ovary were withdrawn and passed off the field. An endobag was advanced through a 10 mm port in the upper abdomen. However, the right ovary was too large to fit into the bag. The dermoid cyst was incised and drained of oily, yellow-brown liquid. Hair was noted as well. The deflated cystic right adnexa was then able to be placed into the bag and withdrawn, to be sent to pathology. The pelvis was irrigated copiously with warmed normal saline. The pedicles were hemostatic. The ports were withdrawn. The gas was allowed to escape. The fascia of the 10 mm incision was reapproximated using 0-Vicryl. The skin incisions were reapproximated using interrupted subcuticular sutures of 4 0 Vicryl. Dermaflex was applied externally. Sponge, lap, needle and instrument counts were correct. The patient was awakened and taken to recovery room in stable condition. I was present and scrubbed through my entire portion of the procedure. Implants None Estimated Blood Loss 5 Drains No Packing No Pathology Yes (Bilateral tubes and ovaries) Complications None Condition Stable Disposition PACU
[2023-06-02] MEDS: fentaNYL CITRATE INJ (*CRX) 100 MCG/2 ML VIAL 25 MCG IV PUSH ×2 (14:37→15:15)
[2023-06-02] MEDS: oxyCODONE HCL (*CRX) 5 MG TAB IR PO (16:12)
[2023-06-02] MEDS: ONDANSETRON INJ 4 MG/2 ML VIAL IV PUSH (17:06)
--- NOTE | 2023-06-02 17:06 | SUR.PHASEII ---
PATIENT ASSISTED GETTING DRESSED.
== END 2023-06-02 17:12 | disposition home or self-care (01) ==
PROVIDERS: Surgery; PCP Family Medicine Adolescent Medicine; Visit Provider Obstetrics & Gynecology
PROC: (CPT 49320; principal; 2023-06-02 12:00)
PROC: 0FT44ZZ Resection of Gallbladder, Percutaneous Endoscopic Approach (ICD-10-PCS; CPT 47562; 2023-06-02 12:00)
DX: D27.0 Benign neoplasm of right ovary (principal); N83.8 Other noninflammatory disorders of ovary, fallopian tube and broad ligament; K80.10 Calculus of gallbladder with chronic cholecystitis without obstruction; Z90.710 Acquired absence of both cervix and uterus; K21.9 Gastro-esophageal reflux disease without esophagitis; E03.9 Hypothyroidism, unspecified; Z86.19 Personal history of other infectious and parasitic diseases; Z87.891 Personal history of nicotine dependence
CPT/HCPCS: 58661; 47562; 36415; 80048; 80076; 82150; 83690; 86850; 86900; 86901; 88304; 88305; A9270; C1713; J0690; J1100; J1170; J1885; J2371; J2405; J2704; J3010; J7120

== ENCOUNTER 2023-12-27 13:10 | Outpatient (CLI) | payer OTHER, SELFPAY ==
--- NOTE | ~2023-12-27 | MMUS_ITS ---
EXAMINATION: MM diagnostic juan LT w kirill, US breast LT limited HISTORY: Follow-up left breast asymmetry/mass TECHNIQUE: Additional 3-D tomosynthesis images of the left breast were performed and synthetic 2-D im ages were generated. CAD analysis was submitted and interpreted. High resolution Limited left breast ultrasound was performed. COMPARISON: Comparison to multiple prior studies sequentially, with oldest reviewed study dated 07/14. BREAST PARENCHYMAL COMPOSITION: Not dense: There are scattered areas of fibroglandular density. FINDINGS: MAMMOGRAPHIC FINDINGS: There is a developing mass in the lower outer quadrant of the left breast. There are no suspicious ca lcifications or architectural distortion. ULTRASOUND: Limited left breast ultrasound: At 1:00, 2 cm from the nipple there is an irregular shaped hypoechoic mass with posterior shadowing, not well seen on transverse images. There is a contiguous hypoechoic mass, likely complicated cysts measuring 3 mm. At 2:00, 2 cm from the nipple there is a small hypoech oic antiparallel mass measuring 2 mm, likely a small cyst. IMPRESSION: 1. Complex hypoechoic mass in the left breast at 1:00, 2 cm from the nipple, suspicious for debris fi lled duct. 2. Ultrasound-guided left breast biopsy recommended. BI-RADS category 4, suspicious findings. Reviewed, dictated and finalized at location B. IMPRESSION: 1. Complex hypoechoic mass in the left breast at 1:00, 2 cm from the nipple, kellogg spicious for debris filled duct. 2. Ultrasound-guided left breast biopsy recommended. BI-RADS category 4, suspicious findings.
== END 2023-12-27 13:11 | disposition home or self-care (01) ==
LOC: ANHIMG 13:16
PROVIDERS: PCP Family Medicine Adolescent Medicine; Visit Provider Family Medicine Adolescent Medicine
DX: R92.8 Other abnormal and inconclusive findings on diagnostic imaging of breast (principal)
CPT/HCPCS: 76642; 77061; 77065; G0279

== ENCOUNTER 2024-02-21 09:16 | Outpatient (CLI) | payer OTHER, SELFPAY ==
--- NOTE | ~2024-02-21 | US_ITS ---
US breast LT limited 02/21/2024 10:19 Indication: Left breast abnormality seen on recent examination. Biopsy requested. Procedure: High-resolution Limited ultrasound of the left breast Comparison: Ultrasound dated 12/27/2023 Findings: There is a serpiginous tubular structure with edge shadowing at the 1:00 position, 2 cm fro m the nipple, consistent with ducts. No discrete mass identified for biopsy purposes. Impression: 1: Probable benign serpiginous ducts in the periareolar location of the left breast at 1:00, 2 cm fro m the nipple. There is associated edge shadowing. Findings discussed with the patient at the time of the examination. BI-RADS CATEGORY 3-PROBABLY BENIGN FINDING RECOMMENDATION: 6 month follow-up Limited left breast ultrasound. Reviewed, dictated and finalized at location B. Impression: 1: Probable benign serpiginous ducts in the periareolar location of the left br east at 1:00, 2 cm from the nipple. There is associated edge shadowing. Finding s discussed with the patient at the time of the examination. BI-RADS CATEGORY 3-PROBABLY BENIGN FINDING RECOMMENDATION: 6 month follow-up Limited left breast ultrasound.
== END 2024-02-21 09:17 | disposition home or self-care (01) ==
LOC: ANHIMG 09:21
PROVIDERS: PCP Family Medicine Adolescent Medicine; Visit Provider Family Medicine Adolescent Medicine
DX: R92.8 Other abnormal and inconclusive findings on diagnostic imaging of breast (principal)
CPT/HCPCS: 76642

== ENCOUNTER 2024-08-22 10:27 | Outpatient (CLI) | payer OTHER, SELFPAY ==
--- NOTE | ~2024-08-22 | MMUS_ITS ---
EXAMINATION: MM diagnostic juan BI w kirill, US breast LT limited HISTORY: Left breast lump TECHNIQUE: Additional 3-D tomosynthesis images of the breasts were performed and synthetic 2-D images were generated. CAD analysis was submitted and interpreted. High resolution Limited left breast ultr asound was performed. COMPARISON: Comparison to multiple prior studies sequentially, with oldest reviewed study dated 05/2017. BREAST PARENCHYMAL COMPOSITION: Not dense: There are scattered areas of fibroglandular density. FINDINGS: MAMMOGRAPHIC FINDINGS: The right breast is stable without evidence for malignancy. Stable left breast asymmetries including a mass in the periareolar location which is centrally low density. ULTRASOUND: Limited left breast ultrasound: At 1:00, 2 cm from the nipple there is a mildly prominent serpiginous duct. At 4:00 near the nipple there is a 7 mm simple cyst. No suspicious masses to suggest malignanc y. IMPRESSION: 1. No evidence for malignancy in either breast. Benign findings. 2. Routine yearly screening mammogram and regular clinical breast examination are recommended. BI-RADS Category 2: Benign finding(s). Reviewed, dictated and finalized at location B. IFIER OPERATOR IMPRESSION: 1. No evidence for malignancy in either breast. Benign findings. 2. Routine yearly screening mammogram and regular clinical breast examination a re recommended. BI-RADS Category 2: Benign finding(s).
== END 2024-08-22 10:28 | disposition home or self-care (01) ==
LOC: ANHIMG 10:27
PROVIDERS: PCP Family Medicine Adolescent Medicine; Visit Provider Family Medicine Adolescent Medicine
DX: N63.21 Unspecified lump in the left breast, upper outer quadrant (principal)
CPT/HCPCS: 76642; 77062; 77066; G0279